=== PATIENT | female | born 1970 | race Caucasian/White ===

== ENCOUNTER 2020-09-15 12:51 | Inpatient (IN) ==
[2020-09-15] MEDS ORDERED: KETOROLAC 30 MG/ML VIAL IV STA (13:14)
[2020-09-15] MEDS ORDERED: SODIUM CHLORIDE 0.9% 1000ML 1,000 ML IV STA (13:14)
[2020-09-15] MEDS ORDERED: ONDANSETRON INJ 2 MG/ML 2 ML VIAL IV STA (13:15)
[2020-09-15 14:13] LABS: Albumin Level 2.3 gm/dl (3.4-5.0); Calcium 8.6 mg/dl (8.5-10.1); Creatinine Clr Calc Pharmacy 31.1 ml/min; Est GFR (African American) 24.9 ml/min; Est GFR (Non-African American) 21.5 ml/min; Potassium 3.4 mmol/L (3.5-5.1)
[2020-09-15 14:21] LABS: Albumin Globulin Ratio 0.6 (0.9-2); Bilirubin,Total 1.8 mg/dl (0.2-1); Globulin 4.1 gm/dl (2.5-4.0); Total Protein 6.4 gm/dl (6.4-8.2)
[2020-09-15] MEDS ORDERED: SODIUM CHLORIDE 0.9% 1000ML 1,000 ML IV ONE ×2 (14:22→15:06)
[2020-09-15 14:25] LABS: Hematocrit (blood only) 33.8 % (37-47); Hemoglobin 11.4 g/dL (12.0-16.0); Mean Corpuscular Hemoglobin 29.5 pg (25-34); Mean Corpuscular Hgb Conc 33.7 g/dL (32-36); Mean Corpuscular Volume 87.3 fL (80-100); Mean Platelet Volume 12.5 fL (7.4-10.4); Platelet Count 49 K/uL (130-400); RDW Coefficient of Variation 14.2 % (11.5-14.5); RDW Standard Deviation 45.7 fL (36.4-46.3); Red Blood Count 3.87 M/uL (4.2-5.4); White Blood Count 24.84 K/uL (4.8-10.8)
[2020-09-15] MEDS ORDERED: PIPERACILLIN/TAZOBACTAM 4.5 GM/120 ML BAG IV ONE (14:27)
[2020-09-15] MEDS ORDERED: PIPERACILL/TAZOBAC CONSULT ACTIVE PRN ×2 (14:27→16:09)
[2020-09-15 14:30] LABS: ALC (manual) 1.24 K/uL (1.2-3.4); ANC (manual) 21.61 K/uL (1.4-6.5); Lymphocytes # (manual) 1.24 K/uL (1.2-3.4); Metamyelocytes # (manual) 0.25 K/uL (0-0); Monocytes # (manual) 1.49 K/uL (0.11-0.59); Myelocytes # (manual) 0.25 K/uL (0-0); Neutrophils # (manual) 21.61 K/uL (1.4-6.5)
[2020-09-15 14:31] LABS: Platelet Estimate Decreased (Normal); Toxic Granulation 1+; Toxic Vacuolation 1+
--- NOTE | 2020-09-15 14:31 | Emergency Department Note ---
History of Present Illness General Chief complaint: Illness Stated complaint: sick since thur back pain head pain Time Seen by Provider: 09/15/20 12:59 Source: patient Mode of arrival: EMS Limitations: no limitations History of Present Illness Provider complaint: Headache, fevers, weakness Maximum Pain Intensity: 5 49-year-old female who presents to the ED with a chief complaint of some gen eralized weakness, nausea, vomiting, headaches, chills, rigors and subjective fevers, diarrhea, decreased appetite and a dry nonproductive cough. The patient states that her original symptoms started last , 6 days ago. She states that she had some right sided lateral abdominal pain. She states that this resolved. She then developed headaches and subjective fevers as well as some nausea and some vomiting as well as some diarrhea and decreased appetite. She describes her headaches as a jabbing pain sometimes in the occipital region. These come and go. She also reports a weird taste in her mouth. She states that she has had a little bit of a runny nose recently. Denies any urinary symptoms but did recently recover from a UTI 2 weeks ago. Diarrhea started yesterday. Last menstrual period was about 3 weeks ago. Denies any chest pains or shortness of breath. No rashes. No known tick exposures. Home Medications Medication Instructions Recorded Confirmed Type ciprofloxacin HCl [Cipro] 500 mg PO BID #10 tab 08/21/20 Rx Past Med/Surg History Medical History No pertinent family history No pertinent past medical history Surgical History No pertinent past surgical history Social History Smoking Status: Never smoker Feels Safe at Home: Yes Review of Systems A total of 10 systems reviewed and were otherwise negative Physical Exam Vital Signs Vital Signs - 24 hr 09/15/20 12:57 09/15/20 13:51 09/15/20 14:33 Temperature 37.6 C H Temperature Source Oral Pulse Rate 143 H 116 H Pulse Rate [Apical] 131 H Respiratory Rate 20 18 20 Respiratory Effort / Characteristics Non-Labored Spontaneous Respiratory Depth Normal Normal Respiratory Pattern Regular Blood Pressure 99/61 L 89/46 L Blood Pressure [Left Arm] 85/55 L Blood Pressure Mean 73 60 Blood Pressure Mean [Left Arm] 65 Pulse Oximetry 96 97 93 Oxygen Delivery Method Room Air Room Air Room Air Sepsis Recent Fever Within 48 Hours Yes Sepsis New/Unexplained Change in Mental Status N/A Sepsis Action Taken by Nursing No Action Required CONSTITUTIONAL/VITAL SIGNS: Reviewed / noted above. GENERAL: Non-toxic in appearance. INTEGUMENTARY: Warm, dry, and [place]. HEAD: Normocephalic. EYES: without scleral icterus or trauma. ENT/OROPHARYNX: clear and moist. LYMPHADENOPATHY/NECK: Is supple without lymphadenopathy or meningismus. RESPIRATORY: Lungs clear and equal. CARDIOVASCULAR: Regular rate and rhythm. GI/ABDOMEN: Soft and mildly tender diffusely, no focal tenderness. No organomegaly or pulsatile mass. No rebound or guarding. Normal bowel sounds. EXTREMITIES: Warm and well perfused. BACK: No CVA tenderness. NEUROLOGICAL: Intact without focal deficits. PSYCHIATRIC: normal affect. MUSCULOSKELETAL: Normally developed with good muscle tone. TRIAGE NURSING DOCUMENTATION REVIEWED. Course Administered Medications Sodium Chloride (Nss 1000ml) 1,000 mls @ 999 mls/hr IV .Q1H1M ONE Stop: 09/15/20 15:22 Last Admin: 09/15/20 14:24 Dose: 999 mls/hr Documented by: [id number] Dopamine HCl/Dextrose (Dopamine / D5w) 400 mg in 250 mls @ 8.775 mls/hr IV .Q24H [facility]; Protocol Stop: 10/15/20 15:14 Last Admin: 09/15/20 15:18 Dose: 2.5 mcg/kg/min, 8.8 mls/hr Documented by: [id number] Cosigned by: [id number] Discontinued Medications Sodium Chloride (Nss 1000ml) 1,000 mls @ 999 mls/hr IV .Q1H1M STA Stop: 09/15/20 14:14 Last Admin: 09/15/20 13:53 Dose: 999 mls/hr Documented by: [id number] Piperacillin Sod/Tazobactam Sod (Zosyn) 4.5 gm in 120 mls @ 240 mls/hr IV NOW ONE Stop: 09/15/20 14:56 Last Admin: 09/15/20 14:38 Dose: 240 mls/hr Documented by: [id number] Ketorolac Tromethamine (Ketorolac 30 Mg/Ml Vial) 30 mg IV NOW STA Stop: 09/15/20 13:15 Last Admin: 09/15/20 13:53 Dose: 30 mg Documented by: [id number] Ondansetron HCl (Ondansetron Inj 2 Mg/Ml 2 Ml Vial) 4 mg IV NOW STA Stop: 09/15/20 13:16 Last Admin: 09/15/20 13:53 Dose: 4 mg Documented by: [id number] Critical Care Time Critical Care Time: Yes Total Critical Care Time: 90 I have personally spent 90 minutes of critical care time in the direct management of this patient. This includes bedside care, interpretation of diagnostic studies, and testing, discussion with consultants, patient, and family members, and other required patient management activities. This 90 minutes is in excess of all separately billable procedures. Medical Decision Making Differential Diagnosis Differential includes viral illness, influenza, streptococcal pharyngitis, meningitis, pneumonia, sinusitis, UTI, pyelonephritis, otitis media. Differential includes acute coronary syndrome, myocardial infarction, CVA, TIA, anemia, infection, pneumonia, UTI, pyelonephritis, poor nutrition, dehydration, electrolyte disturbance,hypoglycemia. Medical Records Attestation: I reviewed the patient's medical records. Home Medications Current Medication List: was personally reviewed by me Laboratory Data Attestation: I reviewed the patient's lab results. Result diagrams: 09/15/20 13:35 09/15/20 13:35 Lab Results 09/15/20 09/15/20 09/15/20 Range/Units 13:35 13:35 13:35 WBC 24.84 H (4.8-10.8) K/uL RBC 3.87 L (4.2-5.4) M/uL Hgb 11.4 L (12.0-16.0) g/dL Hct 33.8 L (37-47) % MCV 87.3 (80-100) fL MCH 29.5 (25-34) pg MCHC 33.7 (32-36) g/dL RDW Std Deviation 45.7 (36.4-46.3) fL RDW Coeff of Danisha 14.2 (11.5-14.5) % Plt Count 49 L (130-400) K/uL MPV 12.5 H (7.4-10.4) fL Neutrophils % (Manual) 87.0 % Band Neutrophils % 0.0 % Lymphocytes % (Manual) 5.0 % Prolymphocyte % 0.0 % Reactive Lymphs % (Man) 0.0 % Monocytes % (Manual) 6.0 % Eosinophils % (Manual) 0.0 % Basophils % (Manual) 0.0 % Metamyelocytes % (Man) 1.0 % Myelocytes % (Man) 1.0 % Promyelocytes % (Man) 0.0 % Blast Cells % (Manual) 0.0 % Plasma Cell % (Manual) 0.0 % Other Cells % 0.0 % Neutrophils # (Manual) 21.61 H (1.4-6.5) K/uL Total Absolute Neuts 21.61 H (1.4-6.5) K/uL Lymphocytes # (Manual) 1.24 (1.2-3.4) K/uL Total Abs Lymphocytes 1.24 (1.2-3.4) K/uL Monocytes # (Manual) 1.49 H (0.11-0.59) K/uL Metamyelocytes # (Man) 0.25 H (0-0) K/uL Myelocytes # (Manual) 0.25 H (0-0) K/uL Large Granular Lymphs 0.0 % Toxic Granulation 1+ Toxic Vacuolation 1+ Platelet Estimate Decreased L (Normal) ESR 67 H (0-20) mm/hr Sodium 138 (136-145) mmol/L Potassium 3.4 L (3.5-5.1) mmol/L Chloride 107 (98-107) mmol/L Carbon Dioxide 20 L (21-32) mmol/L Anion Gap 11.0 (3-11) BUN 38 H (7-18) mg/dl Creatinine 2.55 H (0.6-1.2) mg/dl Est Cr Clr Drug Dosing 31.1 ml/min Est GFR ( Amer) 24.9 ml/min Est GFR (Non-Af Amer) 21.5 ml/min BUN/Creatinine Ratio 15.0 (10-20) Glucose 119 H (70-99) mg/dl Lactate (0.4-2.0) mmol/L Calcium 8.6 (8.5-10.1) mg/dl Total Bilirubin 1.8 H (0.2-1) mg/dl AST 50 H (15-37) U/L ALT 105 H (12-78) U/L Alkaline Phosphatase 301 H (45-117) U/L C-Reactive Protein 30.00 H (0-0.29) mg/dl Total Protein 6.4 (6.4-8.2) gm/dl Albumin 2.3 L (3.4-5.0) gm/dl Globulin 4.1 H (2.5-4.0) gm/dl Albumin/Globulin Ratio 0.6 L (0.9-2) Lipase 47 L (73-393) U/L Procalcitonin (0-0.5) ng/ml Anaplasma Smear See Comment Lyme Disease IgG Ab (Negative) Lyme Disease IgM Ab (Negative) COVID-19 Eval Order 09/15/20 09/15/20 09/15/20 Range/Units 13:35 13:51 14:45 WBC (4.8-10.8) K/uL RBC (4.2-5.4) M/uL Hgb (12.0-16.0) g/dL Hct (37-47) % MCV (80-100) fL MCH (25-34) pg MCHC (32-36) g/dL RDW Std Deviation (36.4-46.3) fL RDW Coeff of Danisha (11.5-14.5) % Plt Count (130-400) K/uL MPV (7.4-10.4) fL Neutrophils % (Manual) % Band Neutrophils % % Lymphocytes % (Manual) % Prolymphocyte % % Reactive Lymphs % (Man) % Monocytes % (Manual) % Eosinophils % (Manual) % Basophils % (Manual) % Metamyelocytes % (Man) % Myelocytes % (Man) % Promyelocytes % (Man) % Blast Cells % (Manual) % Plasma Cell % (Manual) % Other Cells % % Neutrophils # (Manual) (1.4-6.5) K/uL Total Absolute Neuts (1.4-6.5) K/uL Lymphocytes # (Manual) (1.2-3.4) K/uL Total Abs Lymphocytes (1.2-3.4) K/uL Monocytes # (Manual) (0.11-0.59) K/uL Metamyelocytes # (Man) (0-0) K/uL Myelocytes # (Manual) (0-0) K/uL Large Granular Lymphs % Toxic Granulation Toxic Vacuolation Platelet Estimate (Normal) ESR (0-20) mm/hr Sodium (136-145) mmol/L Potassium (3.5-5.1) mmol/L Chloride (98-107) mmol/L Carbon Dioxide (21-32) mmol/L Anion Gap (3-11) BUN (7-18) mg/dl Creatinine (0.6-1.2) mg/dl Est Cr Clr Drug Dosing ml/min Est GFR ( Amer) ml/min Est GFR (Non-Af Amer) ml/min BUN/Creatinine Ratio (10-20) Glucose (70-99) mg/dl Lactate 2.4 H* (0.4-2.0) mmol/L Calcium (8.5-10.1) mg/dl Total Bilirubin (0.2-1) mg/dl AST (15-37) U/L ALT (12-78) U/L Alkaline Phosphatase (45-117) U/L C-Reactive Protein (0-0.29) mg/dl Total Protein (6.4-8.2) gm/dl Albumin (3.4-5.0) gm/dl Globulin (2.5-4.0) gm/dl Albumin/Globulin Ratio (0.9-2) Lipase (73-393) U/L Procalcitonin 48.78 H (0-0.5) ng/ml Anaplasma Smear Lyme Disease IgG Ab Negative (Negative) Lyme Disease IgM Ab Negative (Negative) COVID-19 Eval Order Covid19 at [facility] Imaging Data Radiologist's Impression: Chest X-Ray 09/15/20 13:14 XR chest 1V portable HISTORY: 49 years-old Female Fever acute fever COMPARISON: None TECHNIQUE: Portable AP view of the chest FINDINGS: Cardiac silhouette is upper limits of normal in size. Mild right hemidiaphragmat ic elevation. No pneumothorax, pleural effusion or overt pulmonary edema. Ill- defined 1.5 cm opacity of the right midlung. Interstitial coarsening with ill- defined right lung base opacities. Bones appear grossly intact. IMPRESSION: Interstitial coarsening with ill-defined right midlung and right lung base opacities suggestive of pneumonia. Follow-up imaging to document re solution recommended. ACT 112: Negative or not required by law. The above report was generated using voice recognition software. It may contain grammatical, syntax or spelling errors. Electronically signed by: Georges Stafford M.D. 09/15/2020 2:[address] 09/15/20 13:[address] DOSE: 638.56 mGycm HISTORY: headaches TECHNIQUE: Multiaxial CT images of the head were performed without the use of intravenous contrast. Automated exposure control was utilized for this study. A dose lowering technique was utilized adhering to the principles of ALARA. Comparison: None. Findings: The paranasal sinuses and mastoid air cells are clear. The calvarium and skull base are intact. The ventricles and sulci are within normal limits. There is no mass, hematoma, midline shift, or acute infarct. Impression: No acute intracranial abnormality. ACT 112: Negative or not required by law. Electronically signed by: Myles Leiva M.D. 09/15/2020 2:34 PM ECG Data Attestation: I personally reviewed and interpreted this ECG as follows: Indication: + weakness Rate (beats per minute): 121 Rhythm: + sinus tachycardia ECG Intervals/blocks: + Normal QT-c ECG ST segments: no ST elevation ECG Findings: no PVCs MDM Narrative Patient presents with a multitude of complaints including nausea, vomiting, fever and chills, cough, headache, diarrhea, decreased appetite, weird taste in the mouth. Her exam reveals that she is tachycardic and hypotensive. She is currently afebrile. Oxygen saturations are 96%. ESR 67, CRP is 30, EKG showed a sinus tach at a rate of 121, BUN is 38, creatinine is 2.55, no history of renal disease, bilirubin is 1.8, AST is 50, ALT is 105, alkaline phosphatase is 301, CT scan of the brain was negative, white blood cell count is 24.8, platelet count was 49, lactic is 2.4, procalcitonin is 48. Chest x-ray suggests right mid and lower lobe pneumonia. Anaplasmosis not seen and Lyme testing was negative. The patient was treated with 30 cc/kg of normal saline. She was also started on IV dopamine. She was given some IV Toradol for her discomfort. She was given IV Zofran, IV Zosyn as well. She will require hospitalization for further evaluation and care. Impression & Plan Right lower lobe pneumonia, Sepsis Discharge Plan Visit Data Chief Complaint: Illness Stated Complaint: sick since thur back pain head pain ED Provider: Rodrigo Watters Discharge Problem: Right lower lobe pneumonia, Sepsis Patient Disposition: Being Evaluated by Hospitalist Forms Stand Alone Forms: [facility] Prescriptions Prescriptions: No Action ciprofloxacin HCl [Cipro] 500 mg tablet 500 mg PO BID Qty: 10 RF: 0 Referrals Referrals: PCP,NO [Primary Care Provider] -
--- NOTE | 2020-09-15 14:35 | CT Scan Report ---
HEAD CT NONCONTRAST CT DOSE: 638.56 mGycm HISTORY: headaches TECHNIQUE: Multiaxial CT images of the head were performed without the use of intravenous contrast. A utomated exposure control was utilized for this study. A dose lowering technique was utilized adheri ng to the principles of ALARA. Comparison: None. Findings: The paranasal sinuses and mastoid air cells are clear. The calvarium and skull base are int act. The ventricles and sulci are within normal limits. There is no mass, hematoma, midline shift, or acute infarct. Impression: No acute intracranial abnormality. ACT 112: Negative or not required by law. Electronically signed by: Myles Leiva M.D. 09/15/2020 2:34 PM
[2020-09-15 14:44] LABS: Procalcitonin 48.78 ng/ml (0-0.5)
--- NOTE | 2020-09-15 14:46 | XRay Report ---
XR chest 1V portable HISTORY: 49 years-old Female Fever acute fever COMPARISON: None TECHNIQUE: Portable AP view of the chest FINDINGS: Cardiac silhouette is upper limits of normal in size. Mild right hemidiaphragmatic elevation. No pneu mothorax, pleural effusion or overt pulmonary edema. Ill-defined 1.5 cm opacity of the right midlung. Interstitial coarsening with ill-defined right lung base opacities. Bones appear grossly intact. IMPRESSION: Interstitial coarsening with ill-defined right midlung and right lung base opacities sugg estive of pneumonia. Follow-up imaging to document resolution recommended. ACT 112: Negative or not required by law. The above report was generated using voice recognition software. It may contain grammatical, syntax o r spelling errors. Electronically signed by: Georges Stafford M.D. 09/15/2020 2:44 PM
[2020-09-15 14:50] LABS: Lyme Ab IgG w/WB Rflx Negative (Negative); Lyme Ab IgM w/WB Rflx Negative (Negative)
[2020-09-15] MEDS ORDERED: STAT IV Infusion **Titration per Protocol STA ×2 (15:06→15:58)
[2020-09-15] MEDS ORDERED: DOPamine / D5W 400 MG/250 ML BAG IV SCH (15:15)
--- NOTE | 2020-09-15 15:49 | Critical Care Consultation ---
Date of Consultation September 15, 2020 Assessment & Plan (1) Septic shock: --Septic shock Likely UTI source Continue with gram-negative and anaerobic coverage Follow-up nasal MRSA Patient got total of 2.5 L of IV fluids CRP 30, procalcitonin 48.7 BNP 6366 Continue with vasopressor support to keep MAP greater than 65 --Right-sided hydronephrosis with nephrolithiasis Urology has been consulted Patient will likely go to the OR today --Interstitial thickening and diffuse groundglass opacities Noncardiogenic Likely ARDS from underlying severe sepsis --OTONIEL Component of hypertension plus obstructive Monitor BUNs/creatinine Follow-up urine lites Avoid nephrotoxic medication --Transaminitis with bilirubinemia Likely from shock Monitor --Thrombocytopenia Sepsis could be underlying reason DIC is in the differential but less likely given the fibrinogen is high. Follow-up labs --Prophylaxis VTE:IPC's GI:None Lines:Peripheral Diet:N.p.o. Plan: Continue with vasopressor support to keep MAP greater than 65 Add vasopressin if there is increasing need of Levophed Urology has been consulted I have personally spent 68 minutes of critical care time in the direct management of this patient. This is a life/limb threatening event. This includes time spent evaluating patient, direct bedside care, chart review, placing orders, interpretation of diagnostic studies, discussion with consultants, patient, and family members, as well as other required patient management activities. This time is exclusive of all separately billable procedures, and teaching time and separate from and in addition to any other critical care service time. Please note the above document was generated using voice recognition software. It may contain grammatical, syntax or spelling errors. (2) OTONIEL (acute kidney injury): (3) Pneumonia: (4) Thrombocytopenia: History of Present Illness History of Present Illness 49-year-old female with no significant past medical history presented to the ED with complaints of generalized lethargy, abdominal pain nausea vomiting. Patient was complaining of right-sided flank pain which has been going on since approximately 2 weeks. She was given outpatient ciprofloxacin which she completed the course for. Patient has been spiking fever. Positive dysuria Positive diarrhea nonbloody. Denies any shortness of breath, no headache, no chest pain. Does complain of dizziness on getting up. Patient personally does not have any history of kidney stone. She does have a sister who has kidney stones. Social history: Does occasional marijuana. Non-smoker. Allergies Allergy/AdvReac Type Severity Reaction Status Date / Time prednisone Allergy RIGHT LEG Unverified 09/15/20 16:42 SWELLING/REDNESS Home Medications Medication Instructions Recorded Confirmed Type Various Otc Vitamins/Herbs 0 tabs PO DAILY 09/15/20 09/15/20 History multivitamin with minerals 1 tab PO DAILY 09/15/20 09/15/20 History [Multiple Vitamin-Minerals] Patient History Medical History No pertinent family history No pertinent past medical history Surgical History No pertinent past surgical history Social History Smoking Status: Never smoker Second Hand Exposure: Yes; Do You Dip or Chew Tobacco: No; Tobacco Cessation Education Requested by Patient: No Hx Alcohol Use: Yes Alcohol type: hard liquor Hx Substance Use: Yes Last Used Substance: Days (ago) Preferred Language: Tamazight Communication Ability: Effective Rn Corrections Required: No Beliefs That Will Affect Care: None Current Living Situation: Family Other Information That Helps Us Care for You: No Feels Safe at Home: Yes Safety Concerns: Feels Safe At This Time Review of Systems Review of Systems: All systems reviewed & are unremarkable except as noted in HPI & below Physical Exam Physical Exam: Constitutional: No acute distress HEENT: EOMI, PERRLA Respiratory system: Decreased air entry bilaterally, no wheeze, no rhonchi, positive crackles bilaterally CVS: S1-S2 positive, no murmurs or gallops, tachycardia Abdomen: Soft, nontender, nondistended, positive bowel sounds x4, right CVA tenderness, positive [place] on the right side Extremities: +2 pulses bilaterally radialis/ dorsalis pedis, no cyanosis, no edema Neuro: Awake alert oriented x3 Psych: Normal mood and affect G/U: No Barrientos Results & Data Results & Data ([facility]) Vital Signs (Past 12 Hours) Vital Signs Temp Pulse Pulse Resp BP BP Pulse Ox 09/15/20 15:30 113 H 20 73/50 L 09/15/20 15:29 115 H 28 H 73/42 L 09/15/20 15:14 110 H 32 H 90/54 L 95 09/15/20 15:00 112 H 24 09/15/20 14:45 119 H 28 H 09/15/20 14:33 116 H 20 89/46 L 93 09/15/20 13:51 131 H 18 85/55 L 97 09/15/20 12:57 37.6 C H 143 H 20 99/61 L 96 09/15/20 13:35 09/15/20 13:35 Coding Level of Care Code Critical Care 1st 30-74 mins Diagnoses Septic shock A41.9; R65.21 OTONIEL (acute kidney injury) N17.9 Pneumonia J18.9 Thrombocytopenia D69.6 Time Spent (min) 68
[2020-09-15] MEDS ORDERED: SODIUM CHLORIDE 0.9% 1000ML 500 ML IV ONE (15:50)
[2020-09-15] MEDS: NOREPINEPHRINE/D5W 8 MG/508 ML BAG IV SCH (16:31)
[2020-09-15] MEDS ORDERED: ICU PROTOCOL FOR HYPERGLYCEMIA PRN (17:45)
--- NOTE | 2020-09-15 18:29 | History & Physical Report ---
Date of Service September 15, 2020 Assessment & Plan (1) OTONIEL (acute kidney injury): (2) Septic shock: 49 y/o F without a significant medical history. The pt has had fevers, nausea, vomiting, diarrhea and a cough x 4-5 days. She was hypotensive on arrival to the ER but did not have a fever and was not hypoxic. She denies CP, abdominal pain or dysuria. Initial labs were markedly abnormal with a WBC 0f 24, platelet count of 49, OTONIEL, transaminitis and an elevated procalcitonin. A CXR suggested R lower lobe PNM. Following 3L IVF, her pressure did not respond. She was placed on Levophed and transferred to the ICU. 1) Septic shock - possibly related to PNM although degree of illness does not commensurate with her resp status or imaging. Lab abnormalities may point to a tick-borne illness. Initial Lyme and peripheral smears are negative. We are pending Lyme and anaplasma PCR. She is receiving Zosyn, Doxy which should cover PNM and a tick illness, she is scheduled for a full-body CT. 2) Thrombocytopenia - r/o anaplasmosis and labs for DIC ordered 3) Transaminitis is likely due to hypotension - will trend for now 4) OTONIEL- due to dehydration and hypotension - IVF - recheck AM 5) nausea, vomiting, diarrhea - supportive care Full code, heparin prophylaxis Total time for this admit including review of labs, meds, imaging, records - discussion with pt, ER attending, excellence specialist - including critical care time - 55 min (3) Right lower lobe pneumonia: (4) Thrombocytopenia: (5) LFT elevation: Admission and Anticipated Discharge Date Admission Date: September 15, 2020 History of Present Illness Chief Complaint: Fever, nausea, vomiting, diarrhea Primary Care Provider: NO PCP 49 y/o F without a significant medical history. The pt has had fevers, nausea, vomiting, diarrhea and a cough x 4-5 days. She was hypotensive on arrival to the ER but did not have a fever and was not hypoxic. She denies CP, abdominal pain or dysuria. Initial labs were markedly abnormal with a WBC 0f 24, platelet count of 49, OTONIEL, transaminitis and an elevated procalcitonin. A CXR suggested R lower lobe PNM. Following 3L IVF, her pressure did not respond. She was placed on Levophed and transferred to the ICU. PMH: Denies any active medical issues Surgical: She has not had surgery Social: Occasional ETOH, does not smoke Family: Father - CAD Allergies Allergy/AdvReac Type Severity Reaction Status Date / Time prednisone Allergy RIGHT LEG Unverified 09/15/20 16:42 SWELLING/REDNESS Home Medications Medication Instructions Recorded Confirmed Type Various Otc Vitamins/Herbs 0 tabs PO DAILY 09/15/20 09/15/20 History multivitamin with minerals 1 tab PO DAILY 09/15/20 09/15/20 History [Multiple Vitamin-Minerals] Past Med/Surg History Medical History No pertinent family history No pertinent past medical history Surgical History No pertinent past surgical history Social History Smoking Status: Never smoker Second Hand Exposure: Yes; Do You Dip or Chew Tobacco: No; Tobacco Cessation Education Requested by Patient: No Hx Alcohol Use: Yes Alcohol type: hard liquor Hx Substance Use: Yes Last Used Substance: Days (ago) Preferred Language: Gabonese Communication Ability: Effective Video News Editor Required: No Beliefs That Will Affect Care: None Current Living Situation: Family Other Information That Helps Us Care for You: No Feels Safe at Home: Yes Safety Concerns: Feels Safe At This Time Review of Systems Review of Systems: Gen: Describes chills and weakness ENT: Denies congestion, throat pain, hearing loss Eyes: Denies acute visual changes CV: Denies CP, palpitations Pulmonary: + cough x 3 days - mildly productive GI: + Nausea/vomiting/diarrhea Neuro: Denies acute or unilateral weakness, acute gait impairment, headache or acute visual changes Musculoskeletal: Denies joint pain, inflammation Endocrine: Denies polydipsia, polyuria Skin: Denies acute rashes or ulcers Physical Exam Physical Exam: General: Pleasant, middle-aged F, AAO x 3, no distress ENT: No erythema or exudates, no thrush Eyes: SHERRON, EOMI Head and neck: Normocephalic, atraumatic, No JVD, neck is supple. Chest/heart: Nontender, S1,2, RRR, no murmurs, no gallops Lungs: CTAB, no wheezing or crackles Abdomen: Nontender, nondistended, BS+ Neuro: AAO x 3, speech is clear, no unilateral weakness or loss of sensation, coordination intact Musculoskeletal: No joint inflammation, muscle tenderness, FROM Skin: No acute rashes or ulcers Extremities: No clubbing, cyanosis, edema Results & Data Results & Data ([facility]) Vital Signs (Past 12 Hours) Vital Signs Temp Pulse Pulse Resp BP BP Pulse Ox 09/15/20 17:47 98.4 F 120 H 16 93/65 L 95 09/15/20 17:10 113 H 30 H 105/70 100 09/15/20 17:02 112 H 27 H 09/15/20 16:50 111/64 09/15/20 16:40 108 H 31 H 93/59 L 93 09/15/20 16:30 110 H 30 H 107/53 L 92 09/15/20 16:20 112 H 29 H 128/71 90 09/15/20 16:11 105 H 30 H 101/49 L 89 L 09/15/20 16:00 104 H 25 H 80/44 L 91 09/15/20 15:51 106 H 21 81/40 L 93 09/15/20 15:40 117 H 30 H 142/65 H 90 09/15/20 15:30 113 H 20 73/50 L 09/15/20 15:29 115 H 28 H 73/42 L 09/15/20 15:14 110 H 32 H 90/54 L 95 09/15/20 15:00 112 H 24 09/15/20 14:45 119 H 28 H 09/15/20 14:33 116 H 20 89/46 L 93 09/15/20 13:51 131 H 18 85/55 L 97 09/15/20 12:57 99.7 F H 143 H 20 99/61 L 96 Code Status & VTE Plan VTE Prophylaxis Plan VTE Prophylaxis will be ordered: Yes PG Care Time/CCT Total # of Minutes Spent Total Time Spent with Patient: Total time spent is greater than 50% in coordination of care (as documented) at patient's floor/unit and/or counseling patient: Coding Level of Care Code 09532 Initial Inpt Care Lvl 3 Diagnoses OTONIEL (acute kidney injury) N17.9 Septic shock A41.9; R65.21 Right lower lobe pneumonia J18.9 Pneumonia type: due to unspecified organism Thrombocytopenia D69.6 LFT elevation R79.89 (1) Right lower lobe pneumonia Pneumonia type: due to unspecified organism Qualified Code(s): J18.9 - Pneumonia, unspecified organism
[2020-09-15] MEDS ORDERED: DOXYCYCLINE HYCLATE 100 MG in DEXTROSE 5% 100 ML IV ONE (18:30)
[2020-09-15] MEDS: PIPERACILLIN/TAZOBACTAM 3.375 GM in DEXTROSE 5% 100 ML IV SCH (18:39)
--- NOTE | 2020-09-15 18:44 | CT Scan Report ---
CT chest diagnostic wo con, CT abd pelvis wo con CT DOSE: 1596.86 mGy.cm HISTORY: Septic shock. TECHNIQUE: Multiaxial CT images of the chest, abdomen, and pelvis were performed without contrast. A dose lowering technique was utilized adhering to the principles of ALARA. COMPARISON: None. FINDINGS: Chest CT: Trace bilateral pleural effusions. No pneumothorax. The central airways are patent. There i s diffuse interlobular septal thickening with scattered patchy groundglass airspace opacities. Findin gs favor moderate to severe pulmonary edema/ARDS. A superimposed pneumonia is considered less likely but not entirely excluded. No fractures within the visualized osseous structures. Normal esophagus. T he heart is normal in size. No mediastinal or hilar lymphadenopathy. Normal caliber thoracic aorta. Abdomen/pelvis CT: No pneumoperitoneum. No pneumatosis. Severe disc space narrowing at L5-S1. No frac tures within the visualized osseous structures. Suboptimal evaluation of the abdominal structures due to the mild motion artifact. The liver and spleen are mildly enlarged. The unenhanced gallbladder, p ancreas, adrenal glands, and left kidney are unremarkable. Normal caliber abdominal aorta. No retrope ritoneal hematoma or lymphadenopathy. There is moderate right hydroureteronephrosis secondary to an o bstructing 5 mm stone within the distal right ureter best seen on image 369. This stone is just beyon d the level of the iliac vessels. There is a 1.5 cm nonobstructing stone within the right renal pelvi s. There are few additional small not affecting stones within the lower pole of the right kidney. Mil d bladder wall thickening. The uterus and bilateral adnexa are unremarkable. There are suboptimal dominic luation for bowel pathology due to the lack of intravenous and oral contrast. However, there is no de finite bowel wall thickening or obstruction. IMPRESSION: 1. Diffuse interlobular septal thickening with scattered patchy groundglass airspace opacities within the lungs. There are also trace bilateral pleural effusions. Findings favor moderate to severe pulmo nary edema/ARDS. A superimposed pneumonia is considered less likely but not entirely excluded. 2. A 5 mm obstructing stone within the distal right ureter resulting in moderate hydronephrosis. 3. Right-sided nephrolithiasis. 4. Mild bladder wall thickening. This could be due to underdistention or a cystitis. Recommend correl ation with urinalysis. 5. Mild hepatosplenomegaly. ACT 112: Negative or not required by law. Electronically signed by: Myles Leiva M.D. 09/15/2020 6:43 PM
--- NOTE | 2020-09-15 19:26 | Urology Consultation ---
Date of Consultation September 15, 2020 Assessment & Plan (1) Septic shock: Patient has been admitted to the ICU where she has been placed on broad- spectrum antibiotics in form of Zosyn and doxycycline. It is felt that her obstructing kidney stone may be contributing to her septic picture. Due to the obstructing kidney stone plans are in place for patient go to the operating room for urgent cystoscopy and right ureteroscopy with right ureteral stent placement by Dr. Melendez. Further recommendations will be made based on operative findings as well as the patient's clinical course as it unfolds Supervising Physician Co-Signing Physician Notes Reviewed ct and spoke with pt . She has had right flank pain and is in septic shock . Currently alert . Plan cysto and right stent. Consent obtained . History of Present Illness Reason for Consultation: Nephrolithiasis with concern for sepsis Attending Physician: Isaias Alvarez MD History of Present Illness This is a 49-year-old female with no prior history of kidney stones. Patient says for approximately 5 days she has been experiencing right-sided flank pain with some radiation to her abdomen. She has been experiencing some nausea vomiting with this. Patient says that she has felt feverish along with having chills and rigors. She also reports some decreased appetite as well as a dry nonproductive cough. Patient adds that she was recently treated with a UTI approximately 2 weeks ago and does not feel as though she is fully recovered from this. Because her symptoms have not resolved she presented to the emergency department earlier today. Since admission to [facility] the patient has had labs and imaging which independent reviewed. CT scan abdomen pelvis demonstrated a 5 mm obstructing kidney stone in the distal right ureter resulting in hydronephrosis. Patient was noted to have trace bilateral pleural effusions on the study. She was also noted to have some diffuse interlobular septal thickening with groundglass opacities. She was also noted to have bladder wall thickening felt to correlate with history of UTI and possible cystitis. CT scan of her head showed no acute intracranial abnormality. Chest x-ray showed interstitial coarsening with ill-defined right midlung and right basilar opacity suggestive of pneumonia. A chest CT also demonstrated interlobular septal thickening and groundglass opacities in the lungs. Again trace bilateral pleural effusions were noted. This was felt to favor diagnosis of pulmonary edema with possible ARDS. Labs include a CBC where her white blood cell count was 24.8. Her hemoglobin and hematocrit 11.4 and 33.8 respectively. Platelet count was low at 49,000. A chemistry profile showed her sodium was 138 and potassium was 3.4. BUN and creatinine were 38 and 2.5 lactic acid level was not elevated and was noted to be 1.9 a Covid test was performed and was noted to be negative. At the time of my interview the patient was alert and coherent. She was not in any overt distress. She was however noted to be hypotensive with a blood pressure in the 90s and tachycardic with a heart rate in the 120 range. Allergies Allergy/AdvReac Type Severity Reaction Status Date / Time prednisone Allergy RIGHT LEG Unverified 09/15/20 16:42 SWELLING/REDNESS Home Medications Medication Instructions Recorded Confirmed Type Various Otc Vitamins/Herbs 0 tabs PO DAILY 09/15/20 09/15/20 History multivitamin with minerals 1 tab PO DAILY 09/15/20 09/15/20 History [Multiple Vitamin-Minerals] Patient History Medical History No pertinent family history No pertinent past medical history Surgical History No pertinent past surgical history Social History Smoking Status: Never smoker Second Hand Exposure: Yes; Do You Dip or Chew Tobacco: No; Tobacco Cessation Education Requested by Patient: No Hx Alcohol Use: Yes Alcohol type: hard liquor Hx Substance Use: Yes Last Used Substance: Days (ago) Preferred Language: [place] Communication Ability: Effective Business And Services Instructor Required: No Beliefs That Will Affect Care: None Current Living Situation: Family Other Information That Helps Us Care for You: No Feels Safe at Home: Yes Safety Concerns: Feels Safe At This Time Review of Systems Constitutional: + fever, + chills and + fatigue Eyes: no diplopia Ear, Nose, Mouth, Throat: no ear pain Respiratory: no cough and no dyspnea Cardiovascular: no chest pain Gastrointestinal: + abdominal pain, + nausea and + vomiting Genitourinary: + dysuria and + flank pain (Right sided) Musculoskeletal: + back pain (Right-sided flank pain) Integumentary: no rash Neurologic: no localized weakness Physical Exam Constitutional: well developed and well nourished; no acute distress Eyes: no conjunctival abnormality ENMT: Ears: no hearing impairment Neck: trachea midline Respiratory: normal respiratory effort; no respiratory distress and no labored breathing Cardiovascular: Rate/Rhythm: regular rate, regular rhythm and + tachycardic Gastrointestinal (Abdomen): Percussion/Palpation: abdomen soft; abdomen nontender Musculoskeletal: No calf tenderness Skin: no rashes, warm and dry Neurologic: moves all extremities Psychiatric: A+Ox3, euthymic affect Genitourinary: + CVA tenderness (Right sided with percussion) Results & Data ([facility]) Vital Signs (Past 12 Hours) Vital Signs Temp Pulse Pulse Resp BP BP Pulse Ox 09/15/20 17:47 36.9 C 120 H 16 93/65 L 95 09/15/20 17:37 123 H 27 H 93 09/15/20 17:21 115 H 21 114/76 98 09/15/20 17:10 113 H 30 H 105/70 100 09/15/20 17:02 112 H 27 H 09/15/20 16:50 111/64 09/15/20 16:40 108 H 31 H 93/59 L 93 09/15/20 16:30 110 H 30 H 107/53 L 92 09/15/20 16:20 112 H 29 H 128/71 90 09/15/20 16:11 105 H 30 H 101/49 L 89 L 09/15/20 16:00 104 H 25 H 80/44 L 91 09/15/20 15:51 106 H 21 81/40 L 93 09/15/20 15:40 117 H 30 H 142/65 H 90 09/15/20 15:30 113 H 20 73/50 L 09/15/20 15:29 115 H 28 H 73/42 L 09/15/20 15:14 110 H 32 H 90/54 L 95 09/15/20 15:00 112 H 24 09/15/20 14:45 119 H 28 H 09/15/20 14:33 116 H 20 89/46 L 93 09/15/20 13:51 131 H 18 85/55 L 97 09/15/20 12:57 37.6 C H 143 H 20 99/61 L 96 PG Care Time/CCT Total # of Minutes Spent Total Time Spent with Patient: Total time spent is greater than 50% in coordination of care (as documented) at patient's floor/unit and/or counseling patient: Coding Level of Care Code 03461 Inpt Consult Level 5 Diagnoses Septic shock A41.9; R65.21
[2020-09-15 19:43] LABS: Fibrinogen 662 mg/dl (184-400); INR 1.1 (0.9-1.1); Prothrombin Time 11.2 Seconds (9.0-12.0)
[2020-09-15 19:50] LABS: D Dimer 4210 ug/L FEU (0-500)
--- NOTE | 2020-09-15 19:51 | Anesthesiology Consultation ---
Date of Service September 15, 2020 Assessment & Plan ASA ASA4E Proposed Anesthesia Anesthesia Type: MAC Risk / Benefits Reviewed With: PT / POA / Parent / Guardian, Accepts Plan and Informed Consent Obtained History Surgery Operation Date: 09/15/20 20:00 Proposed Procedures p Ureteral Stent Insertion/Removal(Right) - Ehsan Melendez MD Height/Weight Height: 5 ft 6 in Weight: 97.8 kg Allergies Allergy/AdvReac Type Severity Reaction Status Date / Time prednisone Allergy RIGHT LEG Unverified 09/15/20 16:42 SWELLING/REDNESS Medications Home Medications Medication Instructions Recorded Confirmed Last Taken Various Otc Vitamins/Herbs 0 tabs PO DAILY 09/15/20 09/15/20 Unknown multivitamin with minerals 1 tab PO DAILY 09/15/20 09/15/20 Unknown [Multiple Vitamin-Minerals] Active Medications Generic Name Dose Route Start Last Admin Trade Name Freq PRN Reason Stop Dose Admin Norepinephrine Bitartrate 8 mg in 508 mls @ 17.831 mls/hr 09/15/20 16:00 09/15/20 19:29 Levophed/D5w IV 10/15/20 15:59 0.05 mcg/kg/min .Q24H JODIE 17.8 mls/hr Titration Protocol 0.05 MCG/KG/MIN Piperacillin Sod/Tazobactam 115 mls @ 28.75 mls/hr 09/15/20 19:00 09/15/20 18:39 Sod 3.375 gm/ Dextrose IV 09/17/20 17:59 28.8 mls/hr Q8H JODIE Administration Protocol Doxycycline Hyclate 100 mg/ 110 mls @ 50 mls/hr 09/15/20 18:30 09/15/20 18:38 Dextrose IV 09/15/20 20:41 50 mls/hr NOW ONE Administration Past Medical History Medical History No pertinent family history No pertinent past medical history Exercise / Class Metabolic Activity II 4-5 Yardwork/Stairs/Walk up hill Past Surgical History Surgical History No pertinent past surgical history Past Anesthesia History No Hx of Anesthesia Complications and No Family Hx of Anesthesia Complications History of PONV No Hx of PONV and No Hx of Motion Sickness Social History Smoking Status: Never smoker Do You Dip or Chew Tobacco: No Hx Alcohol Use: Yes Alcohol type: hard liquor alcohol intake frequency: a few times a week Hx Substance Use: Yes substance use type: marijuana Last Used Substance: Days (ago) Review of Systems denies fever/cough/ colds/ chest pain/ SOB/ MAHI denies MAHI Physical Exam Vital Signs Last Vital Signs Temp 36.9 C 09/15/20 17:47 Pulse 120 H 09/15/20 17:47 Resp 16 09/15/20 17:47 BP 93/65 L 09/15/20 17:47 Pulse Ox 95 09/15/20 17:47 ENMT Mouth: no TMJ abnormality and no dentition abnormality Thyromental Distance: > or= 3.5 Finger Breadths Mallampati Class: II Neck neck extension not limited Respiratory normal respiratory effort; no respiratory distress Auscultation: lungs clear to auscultation bilaterally Cardiovascular Rate/Rhythm: regular rate and regular rhythm Neurologic moves all extremities Psychiatric Orientation: alert and oriented x 3 Testing Laboratory Results 09/15/20 13:35 09/15/20 13:35
[2020-09-15] MEDS ORDERED: MIDAZOLAM HCL 1 MG/ML 2ML VIAL ONE (19:55)
--- NOTE | 2020-09-15 20:04 | XRay Report ---
XR chest 1V portable HISTORY: Right central venous catheter insertion. COMPARISON: Chest 09/15/2020. FINDINGS: Interval placement of a right jugular central venous catheter which terminates at the expec carly location of the distal SVC. No pneumothorax. Trace bilateral pleural effusions. The cardiac silho uette is mildly enlarged. There is perihilar interstitial/vascular thickening consistent with moderat e pulmonary edema. There are hazy perihilar airspace opacities also likely representing the pulmonary edema. This has progressed in the interval. IMPRESSION: 1. Right jugular central venous catheter terminates at the distal SVC. No pneumothorax. 2. Interval progression of the moderate pulmonary edema/ARDS. ACT 112: Negative or not required by law. Electronically signed by: Myles Leiva M.D. 09/15/2020 8:03 PM
--- NOTE | 2020-09-15 20:09 | Procedure Note ---
Procedure Note Date of Service September 15, 2020 Procedure: Inserting ultrasound-guided central street railway line installer: Dr. Maria E Sahni Indication: Hypotension Consent: signed by patient and verified with timeout prior to procedure. Anesthesia: 1% lidocaine without epinephrine local. Procedure: Consent was verified and timeout performed. Appropriate imaging studies were reviewed prior to the procedure. Under aseptic and sterile condition, right IJ vein was accessed under direct ultrasound guidance. Guidewire was confirmed to be within the lumen of vein with the help of ultrasound. Catheter was introduced via Seldinger technique. Guide a wire was removed. Good non-pulsatile blood flow was appreciated from all the ports. The catheter was placed at 16 cm and sutured in place. BioPatch was applied to the catheter and a sterile Tegaderm dressing was applied over the catheter with careful attention to sterility. Lung sliding was appreciated post procedure with the help ultrasound. Chest x-ray to follow Patient tolerated the procedure well. Blood loss: Less than 2 cc Complications: None Coding CPT Codes Tubes, Drains, and Vasc Access - Tubes, Drains, and Vasc Access: [id number] Place catheter in vein superior or inferior vena cava ([id number]) Tubes, Drains, and Vasc Access - Tubes, Drains, and Vasc Access: [id number] Ultrasound Guidance For Vascular ([id number]) [facility] Procedure Codes (Charges) Tubes, Drains, and Vasc Access Procedure 1: Tubes, Drains, and Vasc Access: [id number] Place catheter in vein superior or inferior vena cava Procedure 2: Tubes, Drains, and Vasc Access: [id number] Ultrasound Guidance For Vascular
--- NOTE | 2020-09-15 20:11 | Procedure Note ---
Procedure Note Date of Service September 15, 2020 Bedside Ultrasound: Lung: B-lines appreciated bilaterally anterior and posterior, no pleural effusion bilaterally Heart: Hyperdynamic heart, RVOT normal in size, no pericardial effusion, IVC 1.5 cm Abdomen: Right-sided hydronephrosis appreciated with presence of kidney stone Please note the above document was generated using voice recognition software. It may contain grammatical, syntax or spelling errors.Any formal questions or concerns about the content, text or information contained within the body of this dictation should be directly addressed to the provider for clarification. Coding CPT Codes Pulmonary/Thoracic - Pulmonary and Thoracic: 95615 US, Chest, real time with imaging documentation ([id number]) [facility] Procedure Codes (Charges) Pulmonary/Thoracic Procedure 1: Pulmonary and Thoracic: [id number] US, Chest, real time with imaging documentation
[2020-09-15] MEDS ORDERED: fentaNYL citrate 100 MCG/2 ML VIAL ONE (20:25)
[2020-09-15] MEDS ORDERED: ePHEDrine sulfate 50 MG/ML AMP ONE (20:44)
[2020-09-15] MEDS ORDERED: PROPOFOL IV EMULSION 10 MG/ML 20 ML VIAL IV ONE (20:44)
--- NOTE | 2020-09-15 20:44 | Post Operative Brief Note ---
PG Immediate Post Op with CF Date of Surgery September 15, 2020 Pre & Post Diagnosis Operation Date: 09/15/20 20:00 Pre-Op Diagnosis: SEPSIS Post-Op Diagnosis: SEPSIS I identified the patient and participated in the time-out.: Yes Procedure Operation Date: 09/15/20 20:00 Actual Procedures p Ureteral Stent Insertion/Removal(Right) - Ehsan Melendez MD Surgeon Ehsan Melendez MD Able Seaman no Estimated Blood Loss 1 Findings Consistent with Post-Op Diagnosis
[2020-09-15] MEDS ORDERED: DIATRIZOATE MEGLUMINE 30% 100ML VIAL INSTIL ONE (20:46)
[2020-09-15] MEDS ORDERED: HEPARIN SOD 5,000 UNIT/0.5 ML VIAL SQ SCH (22:00)
[2020-09-15] MEDS: ACETAMINOPHEN 325 MG TAB PO PRN (22:29)
--- NOTE | 2020-09-15 22:34 | Operative Report (OR) ---
DATE OF PROCEDURE: 09/15/2020 PREOPERATIVE DIAGNOSES: Right obstructing ureteral stone and urosepsis. POSTOPERATIVE DIAGNOSES: Right obstructing ureteral stone and urosepsis. SURGEON: Ehsan Melendez MD. ANESTHESIA: Sedation. PROCEDURE: Cystoscopy, right retrograde and right stent. COMPLICATIONS: None. INDICATIONS: The patient is a 49-year-old female who presented with a history of urinary tract infec tion in the past. She has been over the last 4-5 days having nausea and soreness on her right side. She became increasingly septic and was admitted to the ICU with hypotension requiring pressors, and she was found to have an obstructing right ureteral stone and a stone in the right renal pelvis, and no left ureteral stone on CT scan. Because of the lack of etiology of her illness, it was felt that she could have urosepsis and so it was requested that I place a stent. DESCRIPTION OF PROCEDURE: The patient was taken to the cystoscopy suite after she was consented. Ayaan gonzalo was marked. She was prepped and draped in the usual sterile fashion after Venodyne stockings were placed. She had a cystoscope placed into the bladder after she had been prepped and draped in the [facility] sterile fashion and a right retrograde was performed. She did have a loop in the proximal ureter and a Dual-Flex guidewire was passed up into the kidney and it was difficult to get around the loop completely up into the renal pelvis, but I passed the guidewire further up into the ureter over the g uidewire to allow the guidewire to be passed further into the proximal renal pelvis and collecting sy stem. The open-ended catheter was removed and then a 4.8, 26 cm stent was passed over the guidewire and appeared to be curled into the renal pelvis when the guidewire was removed. There was a good curl in the bladder and a good curl in what appeared to be the renal pelvis. At the end of the procedure after I emptied the bladder and put the scope back in, I could see urine coming from the end of the stent. At this point, a 16-Vietnamese catheter was placed, and the patient was transferred back to the [facility]. Job ID: [id number]
[2020-09-16] MEDS ORDERED: NORMOSOL-R 500 ML IV ONE (00:11)
--- NOTE | 2020-09-16 00:17 | Anesthesiology Progress Note ---
Date of Service September 16, 2020 Anesthesia Post Procedure Vital Signs Vital Signs: Temp Pulse Pulse Resp BP BP Pulse Ox 09/15/20 23:55 37.1 C 09/15/20 23:53 107 H 27 H 101/64 98 09/15/20 23:38 108 H 27 H 96/64 L 98 09/15/20 23:23 111 H 27 H 97/64 L 99 09/15/20 23:08 115 H 28 H 93/64 L 99 09/15/20 22:53 116 H 28 H 100/64 99 09/15/20 22:38 119 H 32 H 91/62 L 98 09/15/20 22:23 120 H 31 H 96/66 L 98 09/15/20 22:08 120 H 31 H 90/63 L 98 09/15/20 22:01 127 H 24 93 09/15/20 22:00 37.8 C H 09/15/20 21:53 122 H 32 H 91/60 L 98 09/15/20 21:38 123 H 32 H 93/61 L 98 09/15/20 21:18 119 H 17 87/61 L 97 09/15/20 21:10 38.1 C H 126 H 24 89/58 L 95 09/15/20 21:05 119 H 26 H 91/59 L 95 09/15/20 21:00 121 H 22 97/61 L 95 09/15/20 20:55 37.9 C H 126 H 17 99/59 L 97 09/15/20 17:47 36.9 C 120 H 16 93/65 L 95 09/15/20 17:37 123 H 27 H 93 09/15/20 17:21 115 H 21 114/76 98 09/15/20 17:10 113 H 30 H 105/70 100 09/15/20 17:02 112 H 27 H 09/15/20 16:50 111/64 09/15/20 16:40 108 H 31 H 93/59 L 93 09/15/20 16:30 110 H 30 H 107/53 L 92 09/15/20 16:20 112 H 29 H 128/71 90 09/15/20 16:11 105 H 30 H 101/49 L 89 L 09/15/20 16:00 104 H 25 H 80/44 L 91 09/15/20 15:51 106 H 21 81/40 L 93 07/07/21 15:40 117 H 30 H 142/65 H 90 09/15/20 15:30 113 H 20 73/50 L 09/15/20 15:29 115 H 28 H 73/42 L 09/15/20 15:14 110 H 32 H 90/54 L 95 09/15/20 15:00 112 H 24 09/15/20 14:45 119 H 28 H 09/15/20 14:33 116 H 20 89/46 L 93 09/15/20 13:51 131 H 18 85/55 L 97 09/15/20 12:57 37.6 C H 143 H 20 99/61 L 96 Pain Intensity Head: Pain Intensity: 5 Transfer of Care Handoff Completed per policy Notes Mental Status: alert / awake / arousable and participated in evaluation Patient Amnestic to Procedure: Yes Nausea / Vomiting: adequately controlled Pain: adequately controlled Airway Patency, RR, SpO2: stable & adequate BP & HR: stable & adequate Hydration State: stable & adequate Anesthetic Complications: no major complications apparent and Pt Satisfied with anesthetic care
[2020-09-16 01:36] LABS: ALC (manual) 2.76 K/uL (1.2-3.4); ANC (manual) 24.74 K/uL (1.4-6.5); BUN Creatinine Ratio 20.2 (10-20); Calcium 7.2 mg/dl (8.5-10.1); Creatinine Clr Calc Pharmacy 50.1 ml/min; Dohle Bodies 1+; Eosinophils # (manual) 0.49 K/uL (0-0.5); Eosinophils % (manual) 1.7 %; Est GFR (African American) 43.1 ml/min; Est GFR (Non-African American) 37.2 ml/min; Hematocrit (blood only) 29.1 % (37-47); Hemoglobin 9.9 g/dL (12.0-16.0); Lymphocytes # (manual) 2.76 K/uL (1.2-3.4); Lymphocytes % (manual) 9.6 %; Mean Corpuscular Hemoglobin 30.1 pg (25-34); Mean Corpuscular Volume 88.4 fL (80-100); Metamyelocytes # (manual) 0.26 K/uL (0-0); Metamyelocytes % (manual) 0.9 %; Monocytes # (manual) 0.49 K/uL (0.11-0.59); Monocytes % (manual) 1.7 %; Neutrophils # (manual) 24.74 K/uL (1.4-6.5); Neutrophils % (manual) 86.1 %; Platelet Count 34 K/uL (130-400); Platelet Estimate Decreased (Normal); Potassium 3.1 mmol/L (3.5-5.1); RDW Coefficient of Variation 14.5 % (11.5-14.5); RDW Standard Deviation 47.4 fL (36.4-46.3); Red Blood Count 3.29 M/uL (4.2-5.4); Toxic Vacuolation 1+; White Blood Count 28.73 K/uL (4.8-10.8)
[2020-09-16] MEDS: PIPERACILLIN/TAZOBACTAM 3.375 GM in DEXTROSE 5% 100 ML IV SCH (03:03)
[2020-09-16 05:47] LABS: Mean Corpuscular Hgb Conc 33.2 g/dL (32-36)
[2020-09-16 05:53] LABS: Hematocrit (blood only) 29.8 % (37-47); Hemoglobin 9.9 g/dL (12.0-16.0); Mean Corpuscular Hemoglobin 29.4 pg (25-34); Mean Corpuscular Volume 88.4 fL (80-100); RDW Coefficient of Variation 14.6 % (11.5-14.5); RDW Standard Deviation 47.8 fL (36.4-46.3); Red Blood Count 3.37 M/uL (4.2-5.4)
[2020-09-16 05:57] LABS: Partial Thromboplastin Ratio 1.1; Partial Thromboplastin Time 29.2 Seconds (21.0-31.0)
[2020-09-16 06:09] LABS: Creatinine Clr Calc Pharmacy 51.3 ml/min; Est GFR (African American) 44.4 ml/min; Est GFR (Non-African American) 38.3 ml/min; Magnesium 2.1 mg/dl (1.8-2.4); Potassium 3.1 mmol/L (3.5-5.1)
[2020-09-16 06:16] LABS: Platelet Count 36 K/uL (130-400)
[2020-09-16 06:17] LABS: Basophils # (auto) 0.02 K/uL (0-0.2); Basophils % (auto) 0.1 %; Dohle Bodies 1+; Eosinophils # (auto) 0.12 K/uL (0-0.5); Eosinophils % (auto) 0.5 %; Immature Granulocytes % (auto) 0.4 %; Lymphocytes # (auto) 3.32 K/uL (1.2-3.4); Lymphocytes % (auto) 13.4 %; Monocytes # (auto) 1.48 K/uL (0.11-0.59); Neutrophils # (auto) 19.76 K/uL (1.4-6.5); Neutrophils % (auto) 79.6 %; Platelet Estimate Decreased (Normal); Toxic Vacuolation 1+
--- NOTE | 2020-09-16 06:54 | Electrocardiogram Report ---
Test Reason : Blood Pressure : / mmHG Vent. Rate : 121 BPM Atrial Rate : 121 BPM P-R Int : 116 ms QRS Dur : 084 ms QT Int : 320 ms P-R-T Axes : 054 041 031 degrees QTc Int : 454 ms Sinus tachycardia Possible Left atrial enlargement Borderline ECG No previous ECGs available Confirmed by Eddie Aguilera ([id number]) on 09/16/2020 6:54:34 AM Referred By: Confirmed By:Eddie Aguilera
[2020-09-16] MEDS ORDERED: POTASSIUM CHLORIDE CRTAB 20 MEQ TABCR PO STA (07:08)
[2020-09-16] MEDS: POTASSIUM CHLORIDE / WTR 20 MEQ/100 ML PLCT IV SCH ×2 (07:45→09:51)
[2020-09-16] MEDS: ACETAMINOPHEN 325 MG TAB PO PRN ×3 (07:47→22:08)
--- NOTE | 2020-09-16 08:35 | Fluoroscopy Report ---
FL retrograde includes kub CLINICAL HISTORY: RIGHT CYSTO/STENT COMPARISON STUDY: None. FLUOROSCOPY TIME: 33 seconds. FINDINGS: 6 fluoroscopic spot images of the abdomen and pelvis demonstrate retrograde opacification o f the right renal collecting system followed by placement of a right ureteral stent. Only proximal po rtion of the stent is identified and appears in good position. IMPRESSION: Fluoroscopy provided for right ureteral stent placement. ACT 112: Negative or not required by law. Electronically signed by: Myles Leiva M.D. 09/16/2020 8:34 AM
[2020-09-16] MEDS: PIPERACILLIN/TAZOBACTAM 4.5 GM in DEXTROSE 5% 100 ML IV SCH ×2 (09:51→17:54)
--- NOTE | 2020-09-16 10:29 | Urology Progress Note ---
Date of Service September 16, 2020 Assessment & Plan (1) Right distal ureteral calculus: 49 yo F POD #1 s/p cystoscopy and right stent placement with Dr. Melendez. - Afebrile overnight, lab work reviewed - creatinine improved to 1.58, WBC improved to 24.80, Hgb 9.9 - BCx prelim gram negative bacilli - on IV Zosyn, follow cultures - Tolerating ureteral stent with minimal bother - Continue antibiotics and supportive care per primary team - Expected clinical course reviewed, all questions answered - Recommend home with antibiotics x 14 days when medically stable - Will arrange outpatient follow-up with our service for definitive stone management Thank you for allowing us to participate in the acute care of Ms. Denny. Please reconsult us with additional questions, concerns or changes in patient status. Admission and Anticipated Discharge Date Admission Date: September 15, 2020 Subjective 49 yo F POD #1 s/p cystoscopy and right stent placement with Dr. Melendez. Patient seen and examined at bedside. She is awake and resting in bed, appears comfortable. Reports fatigue, but notes some overall improvement today. Denies flank or abdominal pain. Tolerating Barrientos catheter - intact, patent, and draining light rylie urine. No nausea or vomiting. Low appetite. No fever or chills. Chart review: Afebrile overnight Creatinine 1.58, WBC 24.80 (previously 28.73), Hgb 9.9 BCx Gram negative bacilli On IV Zosyn Remains on Levophed, titrating down per notes - SBPs 100-110s No additional concerns. Review of Systems Constitutional: as per Subjective / HPI Gastrointestinal: as per Subjective / HPI Genitourinary: as per Subjective / HPI Physical Exam Constitutional: comfortable; no acute distress Respiratory: able to speak in complete sentences; no respiratory distress and no labored breathing Cardiovascular: Extremities: no pedal edema Gastrointestinal (Abdomen): Inspection/Auscultation: abdomen normal to inspection; abdomen not distended Percussion/Palpation: abdomen soft; abdomen nontender and no guarding Musculoskeletal: Head/Neck/Chest: normocephalic and head atraumatic Skin: no rashes, warm and dry Neurologic: awake Psychiatric: Orientation: alert and oriented x 3 Genitourinary: Barrientos catheter intact, patent and draining clear light rylie urine Results & Data ([facility]) Vital Signs (Past 12 Hours) Vital Signs Temp Pulse Resp BP Pulse Ox 09/16/20 06:38 37.1 C 93 H 22 117/83 98 09/16/20 06:23 83 23 114/73 99 09/16/20 06:08 78 22 116/72 99 09/16/20 05:53 81 24 114/79 99 09/16/20 05:38 82 22 114/73 99 09/16/20 05:23 79 21 115/75 100 09/16/20 05:08 84 24 115/76 99 09/16/20 04:53 83 22 118/77 99 09/16/20 04:38 78 24 109/72 99 09/16/20 04:23 86 25 H 112/77 99 09/16/20 04:08 82 24 109/69 99 09/16/20 03:53 82 24 114/68 99 09/16/20 03:38 83 22 105/68 98 09/16/20 03:23 82 25 H 108/71 99 09/16/20 03:22 84 18 94 09/16/20 03:08 89 24 110/74 100 09/16/20 02:53 91 H 27 H 106/73 99 09/16/20 02:38 93 H 26 H 108/71 99 09/16/20 02:23 96 H 27 H 104/70 99 09/16/20 02:08 91 H 26 H 102/70 98 09/16/20 01:53 93 H 27 H 103/67 98 09/16/20 01:38 96 H 25 H 109/71 99 09/16/20 01:23 94 H 24 104/68 98 09/16/20 01:08 96 H 30 H 107/67 97 09/16/20 00:53 110 H 28 H 84/55 L 99 09/16/20 00:38 100 H 24 99/65 L 99 09/16/20 00:23 101 H 20 91/60 L 99 09/16/20 00:08 97 H 23 96/63 L 98 09/15/20 23:55 37.1 C 09/15/20 23:53 107 H 27 H 101/64 98 09/15/20 23:38 108 H 27 H 96/64 L 98 09/15/20 23:23 111 H 27 H 97/64 L 99 09/15/20 23:08 115 H 28 H 93/64 L 99 09/15/20 22:53 116 H 28 H 100/64 99 09/15/20 22:38 119 H 32 H 91/62 L 98 PG Care Time/CCT Total # of Minutes Spent Total Time Spent with Patient: Total time spent is greater than 50% in coordination of care (as documented) at patient's floor/unit and/or counseling patient: Coding Level of Care Code 58167 Subseq Hosp Care Lvl 2 Diagnoses Right distal ureteral calculus N20.1
[2020-09-16] MEDS: guaiFENesin/DEXTROM SYRUP 200MG/20MG 10ML UDC PO SCH ×3 (11:49→22:08)
--- NOTE | 2020-09-16 14:20 | Critical Care Progress Note ---
Date of Service September 16, 2020 Assessment & Plan (1) Septic shock: --Septic shock with gram-negative bacteremia Likely coming from the right-sided kidney stone Nasal MRSA negative CRP 30, procalcitonin 48.7 BNP 6366 Continue with vasopressor support to keep MAP greater than 65 --Right-sided hydronephrosis with nephrolithiasis S/p stent placement 09/15/2020 Urology on board --Acute hypoxic respiratory failure Noncardiogenic Likely ARDS from underlying severe sepsis O2 supplementation to keep O2 saturation between 88-90% --OTONIEL Component of hypertension plus obstructive Monitor BUNs/creatinine Avoid nephrotoxic medication --Transaminitis with bilirubinemia Likely from shock Monitor --Thrombocytopenia Sepsis could be underlying reason DIC is in the differential but less likely given the fibrinogen is high. Problems blood products negative --Prophylaxis VTE:IPC's GI:None Lines:Peripheral Diet: Regular Plan: In/out: +4.2 L, urine output 480 DC all IV fluids We will consider giving the patient Lasix if urine output does not greens picker BiPAP nightly and as needed shortness of breath Continue with vasopressor support to keep MAP greater than 65 Try to wean off Levophed Hypokalemia being replaced I have personally spent 36 minutes of critical care time in the direct m anagement of this patient. This is a life/limb threatening event. This includes time spent evaluating patient, direct bedside care, chart review, placing orders, interpretation of diagnostic studies, discussion with consultants, patient, and family members, as well as other required patient management activities. This time is exclusive of all separately billable procedures, and teaching time and separate from and in addition to any other critical care service time. Please note the above document was generated using voice recognition software. It may contain grammatical, syntax or spelling errors. (2) OTONIEL (acute kidney injury): (3) Pneumonia: (4) Thrombocytopenia: (5) Acute respiratory failure with hypoxia: Admission and Anticipated Discharge Date Admission Date: September 15, 2020 Subjective Patient seen and examined at bedside. No acute distress, no adverse events overnight. Patient had stent placed in the right ureter later yesterday night. Patient use CPAP at night Denies any chest pain, no shortness of breath. Still complains of mild abdominal tenderness. Denies any fever or chills. Patient was on 0.06 of Levophed at the time of examination. Map was in the mid 70s Review of Systems Review of Systems: All systems reviewed & are unremarkable except as noted in Subjective Physical Exam Physical Exam: Constitutional: No acute distress HEENT: EOMI, PERRLA Respiratory system: Decreased air entry bilaterally, no wheeze, no rhonchi, positive crackles bilaterally CVS: S1-S2 positive, no murmurs or gallops, tachycardia Abdomen: Soft, nontender, nondistended, positive bowel sounds x4, right CVA tenderness Extremities: +2 pulses bilaterally radialis/ dorsalis pedis, no cyanosis, no edema Neuro: Awake alert oriented x3 Psych: Normal mood and affect G/U: No Barrientos Results & Data Results & Data ([facility]) Vital Signs (Past 12 Hours) Vital Signs Temp Pulse Resp BP Pulse Ox 09/16/20 13:53 90 21 125/81 87 L 09/16/20 13:38 85 31 H 112/70 97 09/16/20 13:23 85 26 H 111/74 96 09/16/20 13:08 87 28 H 116/77 97 09/16/20 12:53 85 32 H 106/71 95 09/16/20 12:38 90 30 H 110/67 94 09/16/20 12:23 83 30 H 103/70 96 09/16/20 12:08 87 30 H 111/69 95 09/16/20 11:53 90 32 H 121/74 95 09/16/20 11:38 93 H 30 H 95/64 L 94 09/16/20 11:23 37 C 91 H 28 H 105/66 93 09/16/20 11:08 86 33 H 109/71 94 09/16/20 10:53 87 27 H 107/70 96 09/16/20 10:38 91 H 27 H 109/67 95 09/16/20 10:23 95 H 20 102/67 93 09/16/20 10:08 97 H 18 102/65 92 09/16/20 09:53 96 H 14 106/66 95 09/16/20 09:38 93 H 29 H 107/68 96 09/16/20 09:23 91 H 31 H 98/66 L 94 09/16/20 09:08 93 H 28 H 107/62 94 09/16/20 08:52 93 H 33 H 111/69 09/16/20 08:38 93 H 35 H 120/74 89 L 09/16/20 08:23 99 H 31 H 115/75 93 09/16/20 08:08 95 H 22 116/73 93 09/16/20 07:53 96 H 28 H 118/70 93 09/16/20 07:38 96 H 32 H 112/72 88 L 09/16/20 07:23 97 H 23 114/78 90 09/16/20 07:08 97 H 27 H 125/77 95 09/16/20 06:38 37.1 C 93 H 22 117/83 98 09/16/20 06:23 83 23 114/73 99 09/16/20 06:08 78 22 116/72 99 09/16/20 05:53 81 24 114/79 99 09/16/20 05:38 82 22 114/73 99 09/16/20 05:23 79 21 115/75 100 09/16/20 05:08 84 24 115/76 99 09/16/20 04:53 83 22 118/77 99 09/16/20 04:38 78 24 109/72 99 09/16/20 04:23 86 25 H 112/77 99 09/16/20 04:08 82 24 109/69 99 09/16/20 03:53 82 24 114/68 99 09/16/20 03:38 83 22 105/68 98 09/16/20 03:23 82 25 H 108/71 99 09/16/20 03:22 84 18 94 09/16/20 03:08 89 24 110/74 100 09/16/20 02:53 91 H 27 H 106/73 99 09/16/20 02:38 93 H 26 H 108/71 99 09/16/20 02:23 96 H 27 H 104/70 99 09/16/20 04:56 09/16/20 04:56 Coding Level of Care Code Critical Care 1st 30-74 mins Diagnoses Septic shock A41.9; R65.21 OTONIEL (acute kidney injury) N17.9 Pneumonia J18.9 Thrombocytopenia D69.6 Acute respiratory failure with hypoxia J96.01 Time Spent (min) 36
[2020-09-16] MEDS ORDERED: COUGH DROP (SUGAR FREE) LOZ 24 LOZ/1 BOX BUCCAL ONE (15:03)
[2020-09-16 15:14] LABS: Albumin Level 1.9 gm/dl (3.4-5.0); Bilirubin Direct 0.4 mg/dl (0-0.2); Bilirubin,Total 0.7 mg/dl (0.2-1); Total Protein 5.6 gm/dl (6.4-8.2)
--- NOTE | 2020-09-16 16:08 | Hospitalist Progress Note ---
Date of Service September 16, 2020 Assessment & Plan (1) Bacteremia: Gram(-) bacteremia in 3/4 bottles from 09/15. Likely source given stone. - Right stent placed on 09/[address] Melendez - Plan for 14d course of abx once hemodynamically stable. - Urology following - Continue Zosyn (2) Septic shock: Presently on low-dose Levophed; weaning slowly. (3) OTONIEL (acute kidney injury): Cr on admission was 2.5. - Cr now down to 1.6; unclear baseline. - Monitor (4) Right lower lobe pneumonia: Questionable. CXR seems more like pulmonary edema to me. - ICU holding PNA abx at this time. (5) Thrombocytopenia: Platelets as low as 30 - 50. Likely due to sepsis/septic shock. - Monitor (6) LFT elevation: Possibly sepsis-related. Normalized by 09/16 apart from her alk phos. - Monitor (7) DVT prophylaxis: SCDs - Holding heparin for low platelets Admission and Anticipated Discharge Date Admission Date: September 15, 2020 Subjective Tired, but otherwise no complaints. Reports no fevers/chills, chest pain, shortness of breath, abdominal pain, nausea, or vomiting. Physical Exam Constitutional: WD/WN, vitals as above Eyes: EOM intact bilaterally; no conjunctival abnormality ENMT: external ear and nose normal, oropharynx normal Neck: trachea midline, no thyromegaly normal visual inspection Respiratory: normal respiratory effort, lungs clear to auscultation no respiratory distress Cardiovascular: RRR, no murmur, no edema Gastrointestinal (Abdomen): Inspection/Auscultation: abdomen normal to inspection; abdomen not distended Musculoskeletal: no cyanosis or clubbing, extremities motor strength 5/5 Skin: no rashes, warm and dry Neurologic: moves all extremities and awake Psychiatric: Orientation: alert, oriented to person and cooperative Results & Data Results & Data ([facility]) Vital Signs (Past 12 Hours) Vital Signs Temp Pulse Resp BP Pulse Ox 09/16/20 13:53 90 21 125/81 87 L 09/16/20 13:38 85 31 H 112/70 97 09/16/20 13:23 85 26 H 111/74 96 09/16/20 13:08 87 28 H 116/77 97 09/16/20 12:53 85 32 H 106/71 95 09/16/20 12:38 90 30 H 110/67 94 09/16/20 12:23 83 30 H 103/70 96 09/16/20 12:08 87 30 H 111/69 95 09/16/20 11:53 90 32 H 121/74 95 09/16/20 11:38 93 H 30 H 95/64 L 94 09/16/20 11:23 37 C 91 H 28 H 105/66 93 09/16/20 11:08 86 33 H 109/71 94 09/16/20 10:53 87 27 H 107/70 96 09/16/20 10:38 91 H 27 H 109/67 95 09/16/20 10:23 95 H 20 102/67 93 09/16/20 10:08 97 H 18 102/65 92 09/16/20 09:53 96 H 14 106/66 95 09/16/20 09:38 93 H 29 H 107/68 96 09/16/20 09:23 91 H 31 H 98/66 L 94 09/16/20 09:08 93 H 28 H 107/62 94 09/16/20 08:52 93 H 33 H 111/69 09/16/20 08:38 93 H 35 H 120/74 89 L 09/16/20 08:23 99 H 31 H 115/75 93 09/16/20 08:08 95 H 22 116/73 93 09/16/20 07:53 96 H 28 H 118/70 93 09/16/20 07:38 96 H 32 H 112/72 88 L 09/16/20 07:23 97 H 23 114/78 90 09/16/20 07:08 97 H 27 H 125/77 95 09/16/20 06:38 37.1 C 93 H 22 117/83 98 09/16/20 06:23 83 23 114/73 99 09/16/20 06:08 78 22 116/72 99 09/16/20 05:53 81 24 114/79 99 09/16/20 05:38 82 22 114/73 99 09/16/20 05:23 79 21 115/75 100 09/16/20 05:08 84 24 115/76 99 09/16/20 04:53 83 22 118/77 99 09/16/20 04:38 78 24 109/72 99 07/08/21 04:23 86 25 H 112/77 99 09/16/20 04:08 82 24 109/69 99 09/16/20 03:53 82 24 114/68 99 PG Care Time/CCT Total # of Minutes Spent Total Time Spent with Patient: Total time spent is greater than 50% in coordination of care (as documented) at patient's floor/unit and/or counseling patient: Coding Level of Care Code 91974 Subseq Hosp Care Lvl 3 Diagnoses Bacteremia R78.81 Septic shock A41.9; R65.21 OTONIEL (acute kidney injury) N17.9 Right lower lobe pneumonia J18.9 Pneumonia type: due to unspecified organism Thrombocytopenia D69.6 LFT elevation R79.89 DVT prophylaxis Z29.9 (1) Right lower lobe pneumonia Pneumonia type: due to unspecified organism Qualified Code(s): J18.9 - Pneumonia, unspecified organism
[2020-09-16] MEDS: NOREPINEPHRINE/D5W 8 MG/508 ML BAG IV SCH (17:55)
[2020-09-17] MEDS: PIPERACILLIN/TAZOBACTAM 4.5 GM in DEXTROSE 5% 100 ML IV SCH ×3 (01:56→18:55)
[2020-09-17 05:01] LABS: Hematocrit (blood only) 28.3 % (37-47); Hemoglobin 9.5 g/dL (12.0-16.0); Mean Corpuscular Hemoglobin 29.2 pg (25-34); Mean Corpuscular Hgb Conc 33.6 g/dL (32-36); Mean Corpuscular Volume 87.1 fL (80-100); Mean Platelet Volume 12.9 fL (7.4-10.4); Platelet Count 49 K/uL (130-400); RDW Coefficient of Variation 14.9 % (11.5-14.5); RDW Standard Deviation 47.6 fL (36.4-46.3); Red Blood Count 3.25 M/uL (4.2-5.4); White Blood Count 15.84 K/uL (4.8-10.8)
[2020-09-17 05:06] LABS: Partial Thromboplastin Ratio 0.9; Partial Thromboplastin Time 24.8 Seconds (21.0-31.0)
[2020-09-17] MEDS: guaiFENesin/DEXTROM SYRUP 200MG/20MG 10ML UDC PO SCH ×4 (05:40→21:06)
[2020-09-17 05:42] LABS: BUN Creatinine Ratio 26.7 (10-20); Calcium 8.3 mg/dl (8.5-10.1); Creatinine Clr Calc Pharmacy 96.2 ml/min; Est GFR (African American) 93.9 ml/min; Magnesium 2.2 mg/dl (1.8-2.4); Phosphorus 2.9 mg/dl (2.5-4.9); Potassium 3.6 mmol/L (3.5-5.1)
[2020-09-17 06:23] LABS: Basophils # (auto) 0.02 K/uL (0-0.2); Basophils % (auto) 0.1 %; Dohle Bodies 1+; Eosinophils # (auto) 0.17 K/uL (0-0.5); Eosinophils % (auto) 1.1 %; Immature Granulocytes # (auto) 0.09 K/uL (0.00-0.02); Immature Granulocytes % (auto) 0.6 %; Lymphocytes # (auto) 2.62 K/uL (1.2-3.4); Lymphocytes % (auto) 16.5 %; Monocytes # (auto) 0.91 K/uL (0.11-0.59); Monocytes % (auto) 5.7 %; Neutrophils # (auto) 12.03 K/uL (1.4-6.5)
[2020-09-17] MEDS ORDERED: ACETAMINOPHEN 1000 MG/100 ML IV IV STA (07:39)
--- NOTE | 2020-09-17 08:55 | XRay Report ---
XR chest 1V portable HISTORY: Respiratory distress. Follow-up. COMPARISON: Chest 09/15/2020. FINDINGS: Significant progression of the bilateral patchy airspace opacities. No pneumothorax. No ple ural effusions. The cardiac silhouette remains mildly enlarged. There are low lung volumes. Right jug ular central venous catheter terminates in the SVC. IMPRESSION: Significant progression of the bilateral patchy airspace opacities. This could represent pneumonia or pulmonary edema/ARDS. ACT 112: Negative or not required by law. Electronically signed by: Myles Leiva M.D. 09/17/2020 8:54 AM
[2020-09-17] MEDS ORDERED: POTASSIUM PHOS 3 MMOL/1 ML INFUSION IV STA (09:54)
[2020-09-17] MEDS ORDERED: FUROSEMIDE 20 MG in SYRINGE 0 ML IV ONE (10:00)
[2020-09-17] MEDS ORDERED: POTASSIUM PHOSPHATE 15 MMOL in SODIUM CHLORIDE 0.9% 250 ML IV ONE (10:00)
--- NOTE | 2020-09-17 10:42 | Critical Care Progress Note ---
Date of Service September 17, 2020 Assessment & Plan (1) Septic shock: --Septic shock with gram-negative bacteremia Likely coming from the right-sided kidney stone Nasal MRSA negative CRP 30, procalcitonin 48.7 --> 13.2 BNP 6366 Off vasopressors since 09/16/2020 5 PM --Right-sided hydronephrosis with nephrolithiasis S/p stent placement 09/15/2020 Urology on board --Acute hypoxic respiratory failure Noncardiogenic Likely ARDS from underlying severe sepsis O2 supplementation to keep O2 saturation between 88-90% --OTONIEL Improving Component of hypertension plus obstructive Monitor BUNs/creatinine Avoid nephrotoxic medication --Transaminitis with bilirubinemia Trending down Likely from shock Monitor --Thrombocytopenia Sepsis could be underlying reason DIC is in the differential but less likely given the fibrinogen is high. Problems blood products negative --Prophylaxis VTE:IPC's GI:None Lines:Peripheral, right IJ 09/15/2020 Diet: Regular Plan: In/out: -857, urine output 1875 Patient has been afebrile Chest x-ray from today shows alveolar opacities bilaterally. This likely is ARDS from gram-negative bacteremia I will give the patient Lasix today 20 mg. I would recommend keeping the patient negative balance now Continue with O2 supplementation and BiPAP nightly and as needed shortness of breath. K-Phos being given for low potassium. Patient is hemodynamically stable to be sent to a medical floor. DC TLC prior to downgrade Please note the above document was generated using voice recognition software. It may contain grammatical, syntax or spelling errors.Any formal questions or concerns about the content, text or information contained within the body of this dictation should be directly addressed to the provider for clarification. (2) OTONIEL (acute kidney injury): (3) Pneumonia: (4) Thrombocytopenia: (5) Acute respiratory failure with hypoxia: Admission and Anticipated Discharge Date Admission Date: September 15, 2020 Subjective Patient seen and examined at bedside. No acute distress, no adverse events overnight. Patient still complaining of cough. Denies any significant shortness of breath She used BiPAP overnight. Has been urinating well. Denies any chest pain. Does complain of headache today. She has history of migraines. No nausea or vomiting. Fair appetite. Has been off vasopressor support since 5 PM yesterday. Review of Systems Review of Systems: All systems reviewed & are unremarkable except as noted in Subjective Physical Exam Physical Exam: Constitutional: No acute distress HEENT: EOMI, PERRLA Respiratory system: Decreased air entry bilaterally, no wheeze, no rhonchi, positive crackles bilaterally CVS: S1-S2 positive, no murmurs or gallops, tachycardia Abdomen: Soft, nontender, nondistended, positive bowel sounds x4, right CVA tenderness Extremities: +2 pulses bilaterally radialis/ dorsalis pedis, no cyanosis, no edema Neuro: Awake alert oriented x3 Psych: Normal mood and affect G/U: No Barrientos Results & Data Results & Data ([facility]) Vital Signs (Past 12 Hours) Vital Signs Temp Pulse Resp BP Pulse Ox 09/17/20 05:53 75 19 103/69 99 09/17/20 04:53 36.6 C 91 H 21 99/67 L 100 09/17/20 03:53 87 22 100/69 97 09/17/20 03:32 88 27 H 97 09/17/20 02:53 83 26 H 100/64 97 09/17/20 01:53 83 27 H 96/57 L 96 09/17/20 00:53 84 31 H 92/58 L 94 09/16/20 23:53 90 30 H 100/60 94 09/17/20 04:15 09/17/20 04:15 Coding Level of Care Code 25328 Subseq Hosp Care Lvl 3 Diagnoses Septic shock A41.9; R65.21 OTONIEL (acute kidney injury) N17.9 Pneumonia J18.9 Thrombocytopenia D69.6 Acute respiratory failure with hypoxia J96.01
[2020-09-17] MEDS: NOREPINEPHRINE/D5W 8 MG/508 ML BAG IV SCH (11:37)
--- NOTE | 2020-09-17 16:23 | Hospitalist Progress Note ---
Date of Service September 17, 2020 Assessment & Plan (1) ARDS (adult respiratory distress syndrome): ARDS-like picture with bilateral pulmonary edema after septic shock. - Aiming for net negative fluid balance. - Lasix 20 mg IV x 1 on 09/17 (2) Bacteremia: Gram(-) bacteremia in 3/4 bottles from 09/15. Likely source given stone. - Right stent placed on 09/[address] Melendez - Plan for 14d course of abx once hemodynamically stable. - Urology following - Continue Zosyn -> Still no speciation, so will cont for now. (3) Septic shock: Weaned Levophed on 09/16; transfer out of ICU on 09/17. (4) OTONIEL (acute kidney injury): Cr on admission was 2.5. - Cr now down to 0.85; likely near baseline. - Monitor (5) Right lower lobe pneumonia: Questionable. CXR seems more like pulmonary edema to me. - ICU holding PNA abx at this time. (6) Thrombocytopenia: Platelets as low as 30 - 50. Likely due to sepsis/septic shock. - Monitor -> Still 49 on 09/17. (7) LFT elevation: Possibly sepsis-related. Normalized by 09/16 apart from her alk phos. - Monitor occasionally. (8) DVT prophylaxis: SCDs - Holding heparin for low platelets Admission and Anticipated Discharge Date Admission Date: September 15, 2020 Subjective Doing well today. Tired overall, but no focal pain. Reports no fevers/chills, chest pain, shortness of breath, abdominal pain, nausea, or vomiting. Physical Exam Constitutional: WD/WN, vitals as above Eyes: EOM intact bilaterally; no conjunctival abnormality ENMT: external ear and nose normal, oropharynx normal Neck: trachea midline, no thyromegaly normal visual inspection Respiratory: normal respiratory effort, lungs clear to auscultation no respiratory distress Cardiovascular: RRR, no murmur, no edema Gastrointestinal (Abdomen): Inspection/Auscultation: abdomen normal to inspection; abdomen not distended Musculoskeletal: no cyanosis or clubbing, extremities motor strength 5/5 Skin: no rashes, warm and dry Neurologic: moves all extremities and awake Psychiatric: Orientation: alert, oriented to person and cooperative Results & Data Results & Data ([facility]) Vital Signs (Past 12 Hours) Vital Signs Temp Pulse Resp BP Pulse Ox 09/17/20 05:53 75 19 103/69 99 09/17/20 04:53 36.6 C 91 H 21 99/67 L 100 PG Care Time/CCT Total # of Minutes Spent Total Time Spent with Patient: Total time spent is greater than 50% in coordination of care (as documented) at patient's floor/unit and/or counseling patient: Coding Level of Care Code 66207 Subseq Hosp Care Lvl 3 Diagnoses ARDS (adult respiratory distress syndrome) J80 Bacteremia R78.81 Septic shock A41.9; R65.21 OTONIEL (acute kidney injury) N17.9 Right lower lobe pneumonia J18.9 Pneumonia type: due to unspecified organism Thrombocytopenia D69.6 LFT elevation R79.89 DVT prophylaxis Z29.9 (1) Right lower lobe pneumonia Pneumonia type: due to unspecified organism Qualified Code(s): J18.9 - Pneumonia, unspecified organism
[2020-09-17] MEDS ORDERED: ACETAMINOPHEN 500 MG TAB PO PRN (20:17)
[2020-09-17] MEDS ORDERED: ACETAMINOPHEN 1000 MG/100 ML IV IV ONE (20:30)
[2020-09-18] MEDS: PIPERACILLIN/TAZOBACTAM 4.5 GM in DEXTROSE 5% 100 ML IV SCH ×2 (01:13→09:14)
[2020-09-18] MEDS: guaiFENesin/DEXTROM SYRUP 200MG/20MG 10ML UDC PO SCH ×3 (05:04→20:47)
[2020-09-18 06:45] LABS: Hemoglobin 9.6 g/dL (12.0-16.0); Mean Corpuscular Hemoglobin 29.2 pg (25-34); Mean Corpuscular Hgb Conc 33.1 g/dL (32-36); Mean Corpuscular Volume 88.1 fL (80-100); RDW Coefficient of Variation 14.7 % (11.5-14.5); Red Blood Count 3.29 M/uL (4.2-5.4); White Blood Count 13.21 K/uL (4.8-10.8)
[2020-09-18 06:50] LABS: Mean Platelet Volume 11.7 fL (7.4-10.4); Platelet Count 69 K/uL (130-400)
[2020-09-18 06:54] LABS: Partial Thromboplastin Ratio 0.9; Partial Thromboplastin Time 22.6 Seconds (21.0-31.0)
[2020-09-18 07:12] LABS: Albumin Level 1.7 gm/dl (3.4-5.0); BUN Creatinine Ratio 23.9 (10-20); Calcium 8.3 mg/dl (8.5-10.1); Creatinine Clr Calc Pharmacy 118.5 ml/min; Est GFR (African American) 119.3 ml/min; Est GFR (Non-African American) 102.9 ml/min; Potassium 3.1 mmol/L (3.5-5.1)
[2020-09-18 07:14] LABS: Basophils # (auto) 0.02 K/uL (0-0.2); Basophils % (auto) 0.2 %; Eosinophils # (auto) 0.15 K/uL (0-0.5); Eosinophils % (auto) 1.1 %; Immature Granulocytes # (auto) 0.14 K/uL (0.00-0.02); Immature Granulocytes % (auto) 1.1 %; Lymphocytes # (auto) 1.99 K/uL (1.2-3.4); Lymphocytes % (auto) 15.1 %; Monocytes # (auto) 0.74 K/uL (0.11-0.59); Monocytes % (auto) 5.6 %; Neutrophils # (auto) 10.17 K/uL (1.4-6.5); Neutrophils % (auto) 76.9 %
[2020-09-18 07:18] LABS: Albumin Globulin Ratio 0.4 (0.9-2); Bilirubin,Total 0.7 mg/dl (0.2-1); Globulin 4.2 gm/dl (2.5-4.0); Phosphorus 3.7 mg/dl (2.5-4.9); Total Protein 5.9 gm/dl (6.4-8.2)
[2020-09-18] MEDS: POTASSIUM CHLORIDE CRTAB 20 MEQ TABCR PO SCH ×2 (08:52→20:47)
[2020-09-18] MEDS: CEROVITE ADV FORMULA TAB PO SCH (08:52)
--- NOTE | 2020-09-18 14:24 | Hospitalist Progress Note ---
Date of Service September 18, 2020 Assessment & Plan (1) Bacteremia: Proteus mirabilis bacteremia in 3/4 bottles from 09/15. Likely source given stone. - Right stent placed on 09/[address] Melendez - Plan for 14d course of abx once hemodynamically stable. - Urology following - Continue abx: Zosyn switched to Cipro on 09/18 per sensitivities. (2) ARDS (adult respiratory distress syndrome): ARDS-like picture with bilateral pulmonary edema after septic shock. - Aiming for net negative fluid balance. - Lasix 20 mg IV x 1 on 09/17 - Still with some cough today, but improving. Has bee net negative 1L. (3) Septic shock: Weaned Levophed on 09/16; transfer out of ICU on 09/17. (4) OTONIEL (acute kidney injury): Cr on admission was 2.5. - Cr now down to 0.69; likely near baseline. - Monitor (5) Right lower lobe pneumonia: Questionable. CXR seems more like pulmonary edema to me. - No abx just for pneumonia. (6) Thrombocytopenia: Platelets as low as 30 - 50. Likely due to sepsis/septic shock. - Monitor -> Up to 69 on 09/18. (7) LFT elevation: Possibly sepsis-related. Normalized by 09/16 apart from her alk phos. - Monitor occasionally -> Overall trending down on 09/18. (8) DVT prophylaxis: SCDs - Holding heparin for low platelets Admission and Anticipated Discharge Date Admission Date: September 15, 2020 Subjective Doing well today. Tired overall, but no focal pain. Some better today than yesterday. Reports no fevers/chills, chest pain, shortness of breath, abdominal pain, nausea, or vomiting. Physical Exam Constitutional: WD/WN, vitals as above Eyes: EOM intact bilaterally; no conjunctival abnormality ENMT: external ear and nose normal, oropharynx normal Neck: trachea midline, no thyromegaly normal visual inspection Respiratory: normal respiratory effort, lungs clear to auscultation no respiratory distress Cardiovascular: RRR, no murmur, no edema Gastrointestinal (Abdomen): Inspection/Auscultation: abdomen normal to inspection; abdomen not distended Musculoskeletal: no cyanosis or clubbing, extremities motor strength 5/5 Skin: no rashes, warm and dry Neurologic: moves all extremities and awake Psychiatric: Orientation: alert, oriented to person and cooperative Results & Data Results & Data ([facility]) Vital Signs (Past 12 Hours) Vital Signs Temp Pulse Pulse Resp BP Pulse Ox 09/18/20 07:31 36.9 C 86 16 108/72 90 09/18/20 02:57 74 20 96 PG Care Time/CCT Total # of Minutes Spent Total Time Spent with Patient: Total time spent is greater than 50% in coordination of care (as documented) at patient's floor/unit and/or counseling patient: Coding Level of Care Code 63740 Subseq Hosp Care Lvl 3 Diagnoses Bacteremia R78.81 ARDS (adult respiratory distress syndrome) J80 Septic shock A41.9; R65.21 OTONIEL (acute kidney injury) N17.9 Right lower lobe pneumonia J18.9 Pneumonia type: due to unspecified organism Thrombocytopenia D69.6 LFT elevation R79.89 DVT prophylaxis Z29.9 (1) Right lower lobe pneumonia Pneumonia type: due to unspecified organism Qualified Code(s): J18.9 - Pneumonia, unspecified organism
[2020-09-18] MEDS: CIPROFLOXACIN / D5W 400 MG/200 ML BAG IV SCH (18:20)
[2020-09-19] MEDS: CIPROFLOXACIN / D5W 400 MG/200 ML BAG IV SCH (06:01)
[2020-09-19] MEDS: guaiFENesin/DEXTROM SYRUP 200MG/20MG 10ML UDC PO SCH (06:01)
[2020-09-19 07:01] LABS: BUN Creatinine Ratio 22.7 (10-20); Calcium 8.2 mg/dl (8.5-10.1); Est GFR (African American) 127.8 ml/min; Est GFR (Non-African American) 110.3 ml/min; Magnesium 1.9 mg/dl (1.8-2.4); Potassium 3.5 mmol/L (3.5-5.1)
[2020-09-19 07:09] LABS: Hematocrit (blood only) 29.8 % (37-47); Hemoglobin 9.8 g/dL (12.0-16.0); Mean Corpuscular Hemoglobin 29.4 pg (25-34); Mean Corpuscular Hgb Conc 32.9 g/dL (32-36); Mean Corpuscular Volume 89.5 fL (80-100); Mean Platelet Volume 12.2 fL (7.4-10.4); Platelet Count 96 K/uL (130-400); Platelet Estimate Decreased (Normal); RDW Coefficient of Variation 14.3 % (11.5-14.5); RDW Standard Deviation 47.1 fL (36.4-46.3); Red Blood Count 3.33 M/uL (4.2-5.4); White Blood Count 12.09 K/uL (4.8-10.8)
[2020-09-19] MEDS: CEROVITE ADV FORMULA TAB PO SCH (08:56)
--- NOTE | 2020-09-19 12:05 | Discharge Summary ---
Date of Service September 19, 2020 Admission HPI Per Admitting Provider 49 y/o F without a significant medical history. The pt has had fevers, nausea, vomiting, diarrhea and a cough x 4-5 days. She was hypotensive on arrival to the ER but did not have a fever and was not hypoxic. She denies CP, abdominal pain or dysuria. Initial labs were markedly abnormal with a WBC 0f 24, platelet count of 49, OTONIEL, transaminitis and an elevated procalcitonin. A CXR suggested R lower lobe PNM. Following 3L IVF, her pressure did not respond. She was placed on Levophed and transferred to the ICU. PMH: Denies any active medical issues Surgical: She has not had surgery Social: Occasional ETOH, does not smoke Family: Father - CAD Principal Diagnosis Right kidney stone causing hydronephrosis and urosepsis Gram(-) bacteremia Discharge Exam Constitutional WD/WN, vitals as above Eyes EOM intact bilaterally; no conjunctival abnormality ENMT external ear and nose normal, oropharynx normal Neck trachea midline, no thyromegaly normal visual inspection Respiratory normal respiratory effort, lungs clear to auscultation no respiratory distress Cardiovascular RRR, no murmur, no edema Gastrointestinal (Abdomen) Inspection/Auscultation: abdomen normal to inspection; abdomen not distended Musculoskeletal no cyanosis or clubbing, extremities motor strength 5/5 Skin no rashes, warm and dry Neurologic moves all extremities and awake Psychiatric Orientation: alert, oriented to person and cooperative Discharge Data Allergies Allergy/AdvReac Type Severity Reaction Status Date / Time prednisone Allergy RIGHT LEG Unverified 09/15/20 16:42 SWELLING/REDNESS Consultations 09/15/20 15:13 ED Decision to Admit Stat 09/15/20 17:45 Consult Organic Preparation Technician Routine 09/16/20 09:56 Consult Urology Routine Procedures Performed Operation Date: 09/15/20 20:00 Actual Procedures p Cystoscopy, right ureteral stent placement, retrograde pyelogram(Right) - Ehsan Melendez MD Ordered Studies 09/15/20 13:14 CT head/brain wo con Stat 09/15/20 17:45 CT abd pelvis wo con Stat 09/15/20 17:45 CT chest diagnostic wo con Stat 09/15/20 18:09 US point of care ultrasound Urgent 09/15/20 18:10 US point of care ultrasound Urgent 09/15/20 20:00 FL retrograde includes kub Routine Hospital Course (1) Bacteremia: Proteus mirabilis bacteremia in 3/4 bottles from 09/15. Likely source given stone. - Right stent placed on 09/[address] Melendez - Plan for 14d course of abx once hemodynamically stable. - Urology following - Continue abx: Zosyn switched to Cipro on 09/18 per sensitivities. Discharged on 12 more days for a 2-week total course per urology recommendations. - Urology follow-up for stent removal and stone extraction (2) ARDS (adult respiratory distress syndrome): ARDS-like picture with bilateral pulmonary edema after septic shock. - Aiming for net negative fluid balance. - Lasix 20 mg IV x 1 on 09/17 - Still with some cough today, but improving. (3) Septic shock: Weaned Levophed on 09/16; transfer out of ICU on 09/17. (4) OTONIEL (acute kidney injury): Cr on admission was 2.5. - Cr now down to 0.69; likely near baseline. - Monitor (5) Right lower lobe pneumonia: Questionable. CXR seems more like pulmonary edema to me. - No abx just for pneumonia. (6) Thrombocytopenia: Platelets as low as 30 - 50. Due to sepsis/septic shock. - Monitor -> Up to 96 on 09/19. (7) LFT elevation: Possibly sepsis-related. Normalized by 09/16 apart from her alk phos. - Monitor occasionally -> Overall trending down on 09/18. (8) DVT prophylaxis: SCDs - Holding heparin for low platelets Total Time Total Time Spent Total Time Spent (In Minutes): 35 Discharge Plan Discharge Items Patient Disposition: Home - Self-Care Reason For Visit: SEPSIS Discharge Diagnosis: Right-sided kidney stone with stent required Bacteria in the bloodstream (called bacteremia) Activity: Resume your previous activity Non-emergency contact: Primary Care Provider and Urologist Call non-emergency contact if: your symptoms worsen and your temperature is above 101 Follow-up/Referrals: Ehsan Melendez MD [Physician] - (Please call Dr. Melendez's office by Sunday afternoon if you have not heard from them in the morning.) PCP,NO [Primary Care Provider] - Diet: Regular Addtl Attending Provider Instructions: Ms. Denny, You were hospitalized with low blood pressure as the result of an infection in your kidney and bladder. The bacteria got into your blood stream for a little bit, but with Dr. Melendez putting in a ureteral stent and antibiotics, we have got it out of the bloodstream and the infection is resolving. Please take the Cipro 2 times per day (morning and night) for the next 12 days (2 weeks total including the antibiotics you got in the hospital). We are also starting a medication called Flomax (also called tamsulosin) which can help pass bigger kidney stones. You can take this before bedtime each night for the time you're on the antibiotics. For pain, you have really only needed Tylenol here which you can safely take at home as well. Please call Dr. Melendez's office by Sunday if you have not heard from them in the morning. Please call Dr. Melendez's office if you have any fevers, more pain, nausea, vomiting, or any other concerning issues. Pending Studies at Discharge: No Stand-Alone Forms: [facility] [employer], Work/School Release, Smoking Cessation Medications and DC Order Prescriptions: New ciprofloxacin HCl [Cipro] 500 mg tablet 500 mg PO BID Qty: 24 RF: 0 tamsulosin 0.4 mg capsule 0.4 mg PO HS Qty: 14 RF: 0 Continued multivitamin with minerals [Multiple Vitamin-Minerals] Tablet 1 tab PO DAILY RF: 0 Various Otc Vitamins/Herbs 0 tabs PO DAILY RF: 0 Discharge Orders: Discharge Order (Routine); Ordered 09/19/20 Ordered By: Rahul Melendez/Other Patient Handouts: Dehydration Admission Data Admit Date/Time: 09/15/20 15:57 Attending Provider: Rahul Mariano Admit Provider: Isaias Alvarez Primary Care Provider: PCP,NO Other Providers: Rahul Mariano ; Isaias Alvarez ; Frandy Guaman ; César Chilel ; Davie Burnham ; Abhilash Canales ; Pietro Beltran ; Tony Gregory ; Maria E Sahni ; Ehsan Melendez Other Interventions: Discharge Summary Assessment (RN) Last Done: 09/19/20 10:57 Coding Level of Care Code D/C Day Management >30 mins Diagnoses Bacteremia R78.81 ARDS (adult respiratory distress syndrome) J80 Septic shock A41.9; R65.21 OTONIEL (acute kidney injury) N17.9 Right lower lobe pneumonia J18.9 Pneumonia type: due to unspecified organism Thrombocytopenia D69.6 LFT elevation R79.89 DVT prophylaxis Z29.9
== END 2020-09-19 12:11 | disposition home or self-care (01) | DRG 871 ==
LOC: ED 12:51 → 1E 15:57 → SUATTDRO 15:57 → 1E 17:26 → 3W 09-17 16:24